=== PATIENT | male | born 1965 | race Caucasian/White ===

== ENCOUNTER 2017-05-05 15:35 | Inpatient (IN) | payer OTHER ==
[2017-05-05 15:45] VITALS: BMI 27.0
--- NOTE | 2017-05-05 15:59 | PDOC ---
Attending Attestation - Resident Resident Name: Yves Hall - ED Attending Attestation I have performed the following: I have examined & evaluated the patient, The case was reviewed & discussed with the resident, I agree w/resident's findings & plan, Exceptions are as noted - HPI HPI: 05/05/17 15:57 Abdominal pain with history of diverticulitis - Physicial Exam PE: 05/05/17 15:58 VSS/ Abd tender without peritoneal signs - Medical Decision Making 05/05/17 15:[address] Hall Assessment and plan
[2017-05-05] MEDS ORDERED: ONDANSETRON 4 MG/2 ML VIAL IVPB ONE (16:11)
[2017-05-05] MEDS ORDERED: morphine CARPU-JECT 4 MG/1 ML DISP.SYRIN IVPUSH ONE ×2 (16:11→17:21)
[2017-05-05] MEDS ORDERED: SODIUM CHLORIDE 1,000 ML IV STA ×2 (16:11→22:02)
[2017-05-05] MEDS ORDERED: morphine CARPU-JECT 2 MG/1 ML DISP.SYRIN ONE ×2 (16:25→17:56)
--- NOTE | 2017-05-05 16:26 | PDOC ---
History of Present Illness - General Chief Complaint: Pain Stated Complaint: ABD PAIN Time Seen by Provider: 05/05/17 15:56 History Source: Patient Exam Limitations: No Limitations - History of Present Illness Initial Comments: 05/05/17 16:19 Patient is a 51M with history of 3 episodes of diverticulitis (medically managed , last in February) here today complaining of lower left quadrant abdominal pain for the past several hours. He describes the pain as just like his prior episodes of diverticulitis, only worse. He endorses associated nausea, vomiting and diarrhea. He denies blood in vomit and stool. He denies fevers and chills. He denies changes in urination and testicular pain. GI Doc: Bhavin Lima Past History - Past Medical History Allergies/Adverse Reactions: Allergies Allergy/AdvReac Type Severity Reaction Status Date / Time No Known Allergies Allergy Verified 05/05/17 15:45 Home Medications: Ambulatory Orders NK [No Known Home Medication] 05/05/17 GI Disorders: Yes (DIVERTICULITIS) - Psycho/Social/Smoking Cessation Hx Anxiety: No Suicidal Ideation: No Smoking History: Current every day smoker Number of Cigarettes Smoked Daily: 4 Information on smoking cessation initiated: No Hx Alcohol Use: Yes (SOCIAL) Drug/Substance Use Hx: No Substance Use Type: None Review of Systems - Review of Systems Comments:: 05/05/17 16:26 GENERAL/CONSTITUTIONAL: No fever or chills. No weakness. HEAD, EYES, EARS, NOSE AND THROAT: No change in vision. No ear pain or discharge. No sore throat. CARDIOVASCULAR: No chest pain or shortness of breath RESPIRATORY: No cough, wheezing, or hemoptysis. GASTROINTESTINAL: Positive for nausea, vomiting and diarrhea GENITOURINARY: No dysuria, frequency, or change in urination. MUSCULOSKELETAL: No joint or muscle swelling or pain. Positive for neck and back pain, chronic, at baseline. SKIN: No rash NEUROLOGIC: No headache, vertigo, loss of consciousness, or change in strength/ sensation. ENDOCRINE: No increased thirst. No abnormal weight change HEMATOLOGIC/LYMPHATIC: No anemia, easy bleeding, or history of blood clots. ALLERGIC/IMMUNOLOGIC: No hives or skin allergy. *Physical Exam - Vital Signs Last Vital Signs Temp Pulse Resp BP Pulse Ox 98.8 F 89 20 107/58 98 05/05/17 15:42 05/05/17 15:42 05/05/17 15:42 05/05/17 15:42 05/05/17 15:42 - Physical Exam Comments: 05/05/17 16:27 GENERAL: Awake, alert, and fully oriented, in moderate distress HEAD: No signs of trauma, normocephalic, atraumatic EYES: PERRLA, EOMI, sclera anicteric, conjunctiva clear ENT: Auricles normal inspection, hearing grossly normal, nares patent, oropharynx clear without exudates. LUNGS: No distress, speaks full sentences, clear to auscultation bilaterally HEART: Regular rate and rhythm, normal S1 and S2, no murmurs, rubs or gallops, peripheral pulses normal and equal bilaterally. ABDOMEN: Soft, Tender to palpation in LLQ, normoactive bowel sounds. No guarding, no rebound. No masses : 2 testicles present, nontender, no swelling, normal cremaster reflex EXTREMITIES: Normal inspection, Normal range of motion, no edema. No clubbing or cyanosis. NEUROLOGICAL: Cranial nerves II through XII grossly intact. Normal speech, normal gait, no focal sensorimotor deficits SKIN: Warm, Dry, normal turgor, no rashes or lesions noted. ED Treatment Course - LABORATORY CBC & Chemistry Diagram: 05/05/17 16:15 05/05/17 16:15 - RADIOLOGY Radiology Studies Ordered: Category Date Time Status ABDOMEN & PELVIS CT WITH CONTR [CT] Stat CT Scan 05/05/17 16:13 Ordered Medical Decision Making - Medical Decision Making 05/05/17 16:30 51M with history of diverticulitis (medically managed, last flare in February) here today complaining of LLQ abdominal pain. Vital signs stable and normal. Non- peritoneal exam. Differential diagnosis includes, but is not limited to: diverticulitis, nephrolithiasis, and enteritis. Will evaluate with abdominal work up and CT scan with oral and iv contrast. Given 1L NS, zofran and morphine. 05/05/17 18:54 WBC of 14. Other labs normal. Patient's pain has been difficult to control. Pain control changed to dilaudid. 05/05/17 19:[address] Murrieta. Pending CT Abdomen/Pelvis. *DC/Admit/Observation/Transfer Diagnosis at time of Disposition: Abdominal pain Qualifiers: Abdominal location: left lower quadrant Qualified Code(s): R10.32 - Left lower quadrant pain - Attestations Physician Attestion: 05/05/17 19:17 I, Dr. Yves Hall, attest that this document has been prepared under my direction and personally reviewed by me in its entirety. I further attest, that it accurately reflects all work, treatment, procedures and medical decision -making performed by me.
[2017-05-05 16:35] LABS: BASOPHIL 0.3 % (0-2.0); EOSINOPHIL 0.3 % (0-4.5); MCH 29.3 pg (25.7-33.7); MCHC 33.2 g/dl (32.0-35.9); MEAN CELL VOLUME 88.4 fl (80-96); MEAN PLT VOLUME 7.5 fl (7.5-11.1); NEUTROPHILS 84.8 % (42.8-82.8); PLATELET COUNT 218 K/MM3 (134-434); RDW 13.7 % (11.9-15.9); WHITE BLOOD COUNT 14.2 K/mm3 (4.0-10.0)
[2017-05-05] MEDS ORDERED: KETOROLAC TROMETHAMINE 30 MG/1 ML VIAL IVPUSH ONE (16:51)
[2017-05-05 17:01] LABS: ALK PHOS 97 U/L (45-117); ANION GAP 6 (8-16); BILIRUBIN,TOTAL 0.6 mg/dL (0.2-1.0); CALCIUM 9.2 mg/dL (8.5-10.1); CO2 27 mmol/L (21-32); CREATININE 0.8 mg/dL (0.7-1.3); GLUCOSE,RANDOM 94 mg/dL (74-106); SGOT/AST 15 U/L (15-37); SGPT/ALT 26 U/L (12-78); TOT PROT 6.9 g/dl (6.4-8.2)
[2017-05-05 17:18] LABS: URINE APPEARANCE CLEAR; URINE BILIRUBIN NEGATIVE (NEGATIVE); URINE BLOOD 2+ (NEGATIVE); URINE COLOR LTYELLOW; URINE GLUCOSE (UA) NEGATIVE (NEGATIVE); URINE KETONE NEGATIVE (NEGATIVE); URINE LEUK ESTERASE NEGATIVE (NEGATIVE); URINE NITRITE NEGATIVE (NEGATIVE); URINE PROTEIN 1+ (NEGATIVE); URINE UROBILINOGEN NEGATIVE mg/dL (0.2-1.0)
[2017-05-05 17:20] LABS: URINE HYALINE CAST 3 /lpf; URINE MUCUS RARE; URINE RBC 2 /hpf (0-3); URINE WBC <1 /hpf (3-5)
[2017-05-05] MEDS ORDERED: HYDROmorphone HCL CARPU-JECT 1 MG/1 ML DISP.SYRIN IVPUSH ONE ×2 (18:25→20:38)
[2017-05-05] MEDS ORDERED: HYDROmorphone HCL CARPU-JECT 1 MG/1 ML DISP.SYRIN ONE ×2 (18:33→20:41)
--- NOTE | 2017-05-05 20:26 | PDOC ---
*Physical Exam - Vital Signs Last Vital Signs Temp Pulse Resp BP Pulse Ox 98.8 F 75 20 113/54 94 L 05/05/17 15:42 05/05/17 20:22 05/05/17 20:22 05/05/17 20:22 05/05/17 20:22 - Physical Exam Gastrointestinal/Abdominal: positive: Tender (exquisitly tender in LLQ and periumbilical only). negative: Distended, Guarding, Rebound ED Treatment Course - LABORATORY CBC & Chemistry Diagram: 05/05/17 16:15 05/05/17 16:15 - ADDITIONAL ORDERS Additional order review: Laboratory Results 05/05/17 05/05/17 17:10 16:15 Sodium 137 Potassium 4.3 Chloride 104 Carbon Dioxide 27 Anion Gap 6 L BUN 17 Creatinine 0.8 Creat Clearance w eGFR > 60 Random Glucose 94 Calcium 9.2 Total Bilirubin 0.6 AST 15 ALT 26 Alkaline Phosphatase 97 Total Protein 6.9 Albumin 4.0 Lipase 81 Urine Color Ltyellow Urine Appearance Clear Urine pH 5.0 Urine Protein 1+ H Urine Glucose (UA) Negative Urine Ketones Negative Urine Blood 2+ H Urine Nitrite Negative Urine Bilirubin Negative Urine Urobilinogen Negative Ur Leukocyte Esterase Negative Urine RBC 2 Urine WBC <1 Hyaline Casts 3 Urine Mucus Rare 05/05/17 16:15 RBC 4.75 MCV 88.4 MCHC 33.2 RDW 13.7 MPV 7.5 Neutrophils % 84.8 H Lymphocytes % 9.5 Monocytes % 5.1 Eosinophils % 0.3 Basophils % 0.3 - RADIOLOGY Radiograph Interpretation: 05/05/17 21:42 EXAM: CT Abdomen \T\ Pelvis w IMAGES: 550 EXAM DATE AND TIME: 2017-05-05 19:07:40 REASON FOR EXAM: 52 year-old man with diverticulitis. COMPARISON: None. TECHNIQUE: CT Abdomen \T\ Pelvis with I.V. and oral contrast: Post contrast axial images were obtained following the administration of i.v. iodinated contrast. Coronal and sagittal reformatted images were also generated. 100 cc of Omnipaque. FINDINGS: There is marked circumferential wall thickening in the mucosal edema involving the sigmoid colon and upper rectum, with extensive infiltration of the surrounding adipose tissues , associated with diverticulitis, a contained perforation and diverticular abscess. Noninfected diverticula are also seen more proximally in the sigmoid colon. TECHNIQUE: CT ABDOMEN AND PELVIS Inflammatory changes associated with diverticulitis and diverticular abscess have produced some thickening in the superior posterior wall of the urinary bladder, suggesting secondary urinary bladder cystitis. The ureters are normal in diameter. There is no evidence of pyelonephritis, hydronephrosis or nephrolithiasis. Prostate gland is normal. Remaining segments of the colon and small bowel appear normal. The appendix is normal. There is no free air. The lung bases, liver, portal vein, common bile duct, gallbladder, pancreatic tissues, spleen, adrenal glands, aorta and iliac arteries, and osseous structures appear unremarkable. No evidence of abdominal or pelvic adenopathy. IMPRESSION: Sigmoid colon diverticulitis with a contained perforation and diverticular abscess. These inflammatory changes have secondarily infected the dome posterior wall of the urinary bladder, which exhibits marked wall thickening, suggesting urinary bladder cystitis. The study is otherwise unremarkable. - Medications Given in the ED: ED Medications Discontinued Medications Generic Name Dose Route Start Last Admin Trade Name Freq PRN Reason Stop Dose Admin Hydromorphone HCl 1 mg 05/05/17 18:25 05/05/17 18:40 Dilaudid Injection - IVPUSH 05/05/17 18:26 1 mg ONCE ONE Administration Sodium Chloride 1,000 mls @ 1,000 mls/hr 05/05/17 16:11 05/05/17 16:33 Normal Saline - IV 05/05/17 17:10 1,000 mls/hr ASDIR STA Administration Ketorolac Tromethamine 30 mg 05/05/17 16:51 05/05/17 17:55 Toradol Injection - IVPUSH 05/05/17 16:52 Not Given ONCE ONE Morphine Sulfate 4 mg 05/05/17 16:11 05/05/17 16:32 Morphine Injection - IVPUSH 05/05/17 16:12 4 mg ONCE ONE Administration Morphine Sulfate 4 mg 05/05/17 17:21 05/05/17 18:08 Morphine Injection - IVPUSH 05/05/17 17:22 4 mg ONCE ONE Administration Ondansetron HCl 4 mg 05/05/17 16:11 05/05/17 16:30 Zofran Injection IVPB 05/05/17 16:12 4 mg ONCE ONE Administration Medical Decision Making - Medical Decision Making 05/05/17 20:24 Patient is a 51 yo male signed out to me by the day team (Dr. Quezada) Hx diverticulitis CC LLQ pain WBC 14, no UTI CT in progress - Check CT - Pain management 05/05/17 20:26 05/05/17 20:36 Patient states his pain has not been managed since he got here, 23/06 BP 113/54 Dilaudid 1 mg 05/05/17 20:51 Spoke in depth with patient and . They are very displeased with his care so far, especially pain management. Complaints appear primarily related to lack of information provided to him about care. I explained where we are in the process, performed abdominal examinaltion, informed him about additional Dilaudid, informed him I would try to accelerate CT read and would actively access and follow pain management. Patient expressed his comfort with the plan. 05/05/17 21:26 Spoke in depth with patient and . His pain is less and deemed acceptable at this time. Discussed possible outcomes. Patient feels reassured with information at this time Pt endorsed 4x hx of diverticulitis, GI Bhavin Lima. Previous pain controlled with tramadol 05/05/17 21:42 Imaging IMPRESSION: Sigmoid colon diverticulitis with a contained perforation and diverticular abscess. These inflammatory changes have secondarily infected the dome posterior wall of the urinary bladder, which exhibits marked wall thickening, suggesting urinary bladder cystitis. The study is otherwise unremarkable. 05/05/17 22:[address] Roel Burton. - Have Pt admitted - NPO - Zosyn - Fluids (125-150 NS) is not heart conditions - Consult - He will see patient in the morning 05/05/17 22:08 Discussed patient with hospitalist (Dr. Fung) who agreed with [facility] 05/05/17 22:[address] Vigil (covering for Dr. Bhavin Lima - GI) giving a heads up about admission of his patient. *DC/Admit/Observation/Transfer Diagnosis at time of Disposition: Abdominal pain Qualifiers: Abdominal location: left lower quadrant Qualified Code(s): R10.32 - Left lower quadrant pain Diverticulitis of both large and small intestine with abscess Qualifiers: Diverticulitis bleeding: without bleeding Qualified Code(s): K57.40 - Diverticulitis of both small and large intestine with perforation and abscess without bleeding - Discharge Dispostion Admit: Yes - Attestations Physician Attestion: 05/05/17 22:13 I, Dr. Salazar Núñez, attest that this document has been prepared under my direction and personally reviewed by me in its entirety. I further attest, that it accurately reflects all work, treatment, procedures and medical decision -making performed by me.
[2017-05-05] MEDS ORDERED: PIPERACILLIN/TAZOB 3.375 GM 3.375 GM in DEXTROSE 5%-WATER - 50 ML IVPB ONE (21:40)
[2017-05-05] MEDS ORDERED: HYDROmorphone HCL CARPU-JECT 2 MG/1 ML DISP.SYRIN ONE (23:12)
[2017-05-05] MEDS ORDERED: ONDANSETRON 4 MG/2 ML VIAL IVPB PRN (23:33)
[2017-05-05] MEDS: HYDROmorphone HCL CARPU-JECT 1 MG/1 ML DISP.SYRIN IVPUSH PRN (23:43)
--- NOTE | 2017-05-05 23:50 | HP ---
CHIEF COMPLAINT: LLQ abd pain PCP: Lavonne Guerra; GI: Dr. Bhavin Lima HISTORY OF PRESENT ILLNESS: This is a 51 year old male with a past medical history of diverticulitis (4 episodes in 2 years) who presented to the ED for LLQ pain associated with N/V/D since this afternoon. He denies blood in his vomitus or stool. Has felt hot and clammy off and on today. ER course was notable for: (1) CT abd/pel c/w diverticular abscess w/ contained perforation (2) WBC 14.2 Recent Travel: [place] PAST MEDICAL HISTORY: diverticulitis PAST SURGICAL HISTORY: Left rotator cuff and bicep tear repair March 2017 Right knee ACL, LCL, MCL repair Social History: Smoking: Quit 2016, previous 1 ppd Alcohol: social, couple of beers Drugs: marijuana Family History: mother alive, CVA age 60 father age 59, [place] sister without medical problems 2 children, alive and well Allergies bee venom protein (honey bee) Allergy (Verified 05/05/17 20:28) HOME MEDICATIONS: 3 Medication Instructions Recorded NK [No Known Home Medication] 05/05/17 REVIEW OF SYSTEMS CONSTITUTIONAL: Present: diaphoresis Absent: fever, chills, generalized weakness, malaise, loss of appetite, weight change HEENT: Absent: rhinorrhea, nasal congestion, throat pain, throat swelling, difficulty swallowing, mouth swelling, ear pain, eye pain, visual changes CARDIOVASCULAR: Absent: chest pain, syncope, palpitations, irregular heart rate, lightheadedness , peripheral edema RESPIRATORY: Absent: cough, shortness of breath, dyspnea with exertion, orthopnea, wheezing, stridor, hemoptysis GASTROINTESTINAL: Present: abdominal pain, nausea, vomiting, diarrhea Absent: abdominal distension, constipation, melena, hematochezia GENITOURINARY: Absent: dysuria, frequency, urgency, hesitancy, hematuria, flank pain, genital pain MUSCULOSKELETAL: Absent: myalgia, arthralgia, joint swelling, back pain, neck pain SKIN: Absent: rash, itching, pallor HEMATOLOGIC/IMMUNOLOGIC: Absent: easy bleeding, easy bruising, lymphadenopathy, frequent infections ENDOCRINE: Absent: unexplained weight gain, unexplained weight loss, heat intolerance, cold intolerance NEUROLOGIC: Absent: headache, focal weakness or paresthesias, dizziness, unsteady gait, seizure, mental status changes, bladder or bowel incontinence PSYCHIATRIC: Absent: anxiety, depression, suicidal or homicidal ideation, hallucinations. PHYSICAL EXAMINATION Vital Signs - 24 hr 3 05/05/17 05/05/17 05/05/17 15:42 20:21 20:22 Temperature 98.8 F Pulse Rate 89 Pulse Rate [ 75 Radial] Respiratory 20 20 Rate Blood Pressure 107/58 Blood Pressure 113/54 [Right Arm] O2 Sat by Pulse 98 94 L 94 L Oximetry (%) GENERAL: Awake, alert, and fully oriented, in no acute distress. HEAD: Normal with no signs of trauma. EYES: Pupils equal, round and reactive to light, extraocular movements intact, sclera anicteric, conjunctiva clear. No lid lag. EARS, NOSE, THROAT: Ears normal, nares patent, oropharynx clear without exudates. Moist mucous membranes. NECK: Normal range of motion, supple without lymphadenopathy, JVD, or masses. LUNGS: Breath sounds equal, clear to auscultation bilaterally. No wheezes, and no crackles. No accessory muscle use. HEART: Regular rate and rhythm, normal S1 and S2 without murmur, rub or gallop. ABDOMEN: Soft, not distended, hypoactive bowel sounds, no guarding, no rebound, no masses. No hepatomegaly or splenomegaly. Pain on LLQ palpation MUSCULOSKELETAL: Normal range of motion at all joints. No bony deformities or tenderness. No CVA tenderness. UPPER EXTREMITIES: 2+ pulses, warm, well-perfused. No cyanosis. No clubbing. No peripheral edema. left arm in sling LOWER EXTREMITIES: 2+ pulses, warm, well-perfused. No calf tenderness. No peripheral edema. NEUROLOGICAL: Cranial nerves II-XII intact. Normal speech. Normal gait. PSYCHIATRIC: Cooperative. Good eye contact. Appropriate mood and affect. SKIN: Warm, dry, normal turgor, no rashes or lesions noted, normal capillary refill. Laboratory Results - last 24 hr 3 05/05/17 05/05/17 05/05/17 16:15 16:15 17:10 WBC 14.2 H RBC 4.75 Hgb 13.9 Hct 42.0 MCV 88.4 MCH 29.3 MCHC 33.2 RDW 13.7 Plt Count 218 MPV 7.5 Neutrophils % 84.8 H Lymphocytes % 9.5 Monocytes % 5.1 Eosinophils % 0.3 Basophils % 0.3 Sodium 137 Potassium 4.3 Chloride 104 Carbon Dioxide 27 Anion Gap 6 L BUN 17 Creatinine 0.8 Creat Clearance w eGFR > 60 Random Glucose 94 Calcium 9.2 Total Bilirubin 0.6 AST 15 ALT 26 Alkaline Phosphatase 97 Total Protein 6.9 Albumin 4.0 Lipase 81 Urine Color Ltyellow Urine Appearance Clear Urine pH 5.0 Ur Specific [place] >= 1.030 H Urine Protein 1+ H Urine Glucose (UA) Negative Urine Ketones Negative Urine Blood 2+ H Urine Nitrite Negative Urine Bilirubin Negative Urine Urobilinogen Negative Ur Leukocyte Esterase Negative Urine RBC 2 Urine WBC <1 Hyaline Casts 3 Urine Mucus Rare Radiology Results 05/05/17 21:42 EXAM: CT Abdomen \T\ Pelvis w IMAGES: 550 EXAM DATE AND TIME: 2017-05-05 19:07:40 REASON FOR EXAM: 52 year-old man with diverticulitis. COMPARISON: None. TECHNIQUE: CT Abdomen \T\ Pelvis with I.V. and oral contrast: Post contrast axial images were obtained following the administration of i.v. iodinated contrast. Coronal and sagittal reformatted images were also generated. 100 cc of Omnipaque. FINDINGS: There is marked circumferential wall thickening in the mucosal edema involving the sigmoid colon and upper rectum, with extensive infiltration of the surrounding adipose tissues , associated with diverticulitis, a contained perforation and diverticular abscess. Noninfected diverticula are also seen more proximally in the sigmoid colon. TECHNIQUE: CT ABDOMEN AND PELVIS Inflammatory changes associated with diverticulitis and diverticular abscess have produced some thickening in the superior posterior wall of the urinary bladder, suggesting secondary urinary bladder cystitis. The ureters are normal in diameter. There is no evidence of pyelonephritis, hydronephrosis or nephrolithiasis. Prostate gland is normal. Remaining segments of the colon and small bowel appear normal. The appendix is normal. There is no free air. The lung bases, liver, portal vein, common bile duct, gallbladder, pancreatic tissues, spleen, adrenal glands, aorta and iliac arteries, and osseous structures appear unremarkable. No evidence of abdominal or pelvic adenopathy. IMPRESSION: Sigmoid colon diverticulitis with a contained perforation and diverticular abscess. These inflammatory changes have secondarily infected the dome posterior wall of the urinary bladder, which exhibits marked wall thickening, suggesting urinary bladder cystitis. The study is otherwise unremarkable. ASSESSMENT/PLAN: 51yM with PMH diverticulitis presented to ED with LLQ pain associated with N/V/ D. He is being admitted for diverticulitis with abscess and contained perforation. Diverticulitis with abscess and contained perforation - zosyn 3.375 q6h, ID consult ordered for approval - surgery consulted by ED. Dr. Burton to attend in am - NS @ 125cc/hr - NPO - dilaudid 1mg q4h for pain, assess efficacy and increase as needed - zofran PRN nausea DVT PPX - hold heparin preop, reeval postop FEN - NS @ 125cc/hr - BMP in am - NPO preop for anticipated surgery in am Dispo: pt currently requires inpatient management of his emergent condition and anticipated LOS is greater than 2 midnights. Visit type - Emergency Visit Emergency Visit: Yes ED Registration Date: 05/05/17 Care time: The patient presented to the Emergency Department on the above date and was hospitalized for further evaluation of their emergent condition. - New Patient This patient is new to me today: Yes Date on this admission: 05/05/17 - Critical Care Critical Care patient: No
[2017-05-06] MEDS: SODIUM CHLORIDE 1,000 ML IV SCH ×3 (00:43→17:13)
[2017-05-06] MEDS ORDERED: HYDROmorphone HCL CARPU-JECT 1 MG/1 ML DISP.SYRIN IVPB ONE ×2 (01:47→09:13)
[2017-05-06] MEDS ORDERED: PIPERACILLIN/TAZOB 3.375 GM/50 ML PRE-DOCKED IVPB ONE (06:00)
[2017-05-06] MEDS ORDERED: PIPERACILLIN/TAZOBACTAM 3.375 GM VIAL IVPB ONE ×3 (06:23→17:08)
[2017-05-06] MEDS ORDERED: DEXTROSE 5%-WATER - 50 ML IVPB ONE ×2 (06:23→17:08)
[2017-05-06] MEDS ORDERED: PIPERACILLIN/TAZOB 3.375 GM 3.375 GM in DEXTROSE 5%-WATER - 50 ML IVPB ONE ×2 (06:30→08:15)
[2017-05-06] MEDS: HYDROmorphone HCL CARPU-JECT 1 MG/1 ML DISP.SYRIN IVPUSH PRN ×4 (06:34→21:49)
[2017-05-06 07:35] LABS: BASOPHIL 0.2 % (0-2.0); EOSINOPHIL 0.1 % (0-4.5); MCH 29.5 pg (25.7-33.7); MCHC 32.9 g/dl (32.0-35.9); MEAN CELL VOLUME 89.7 fl (80-96); NEUTROPHILS 84.8 % (42.8-82.8); PLATELET COUNT 185 K/MM3 (134-434); WHITE BLOOD COUNT 15.3 K/mm3 (4.0-10.0)
[2017-05-06] MEDS ORDERED: PIPERACILLIN/TAZOB 3.375 GM/50 ML PRE-DOCKED IV ONE (07:47)
[2017-05-06 07:56] LABS: ANION GAP 9 (8-16); CALCIUM 7.9 mg/dL (8.5-10.1); CO2 24 mmol/L (21-32); GLUCOSE,RANDOM 87 mg/dL (74-106); MAGNESIUM 1.6 mg/dL (1.8-2.4)
[2017-05-06 07:57] LABS: CREATININE 0.6 mg/dL (0.7-1.3); PHOSPHOROUS 2.4 mg/dL (2.5-4.9)
[2017-05-06] MEDS ORDERED: DEXTROSE 5%-WATER - 100 ML IVPB ONE (08:44)
[2017-05-06] MEDS ORDERED: DEXTROSE 5%-WATER 100 ML IVPB ONE (09:42)
[2017-05-06] MEDS ORDERED: PANTOPRAZOLE SODIUM 40 MG VIAL ONE (09:42)
[2017-05-06] MEDS ORDERED: SODIUM CHLORIDE 100 ML IVPB ONE (09:42)
[2017-05-06] MEDS: PANTOPRAZOLE SODIUM 40 MG in SODIUM CHLORIDE 100 ML IVPB SCH (09:50)
[2017-05-06] MEDS ORDERED: cefTRIAXone 2 GM/100 ML BAG (PRE-DOCKED) IVPB SCH (10:00)
[2017-05-06] MEDS ORDERED: CEFTRIAXONE 2 GM in DEXTROSE 5%-WATER 100 ML IVPB SCH (10:00)
--- NOTE | 2017-05-06 10:50 | CONSULT ---
Consult Consult Specialty:: Surgery Reason for Consultation:: Diverticulitis with abscess - History of Present Illness Chief Complaint: Abdominal pain History of Present Illness: 52 male presents to the ER for abdominal pain x 1-2 days Has had 3-4 episodes of diverticulitis in the past Treated with antibiotics Now with worse pain Denies fevers, chills Denies diarrhea CT shows left sided diverticulitis with contained perforation with abscess - History Source History Provided By: Patient, Medical Record Limitations to Obtaining History: No Limitations - Past Medical History Gastrointestinal: Yes: Diverticulitis - Past Surgical History Additional Surgical History: Left shoulder surgery - Alcohol/Substance Use Hx Alcohol Use: Yes (SOCIAL) - Smoking History Smoking history: Current every day smoker Aproximately how many cigarettes per day: 4 Home Medications - Allergies Allergies/Adverse Reactions: Allergies Allergy/AdvReac Type Severity Reaction Status Date / Time bee venom protein (honey bee) Allergy Verified 05/05/17 20:28 - Home Medications Home Medications: Ambulatory Orders NK [No Known Home Medication] 05/05/17 Family Disease History - Family Disease History Family History: Denies Review of Systems - Review of Systems Constitutional: denies: Chills, Fever Eyes: reports: No Symptoms HENT: reports: No Symptoms Neck: reports: No Symptoms Cardiovascular: denies: Chest Pain Respiratory: denies: Cough Gastrointestinal: reports: Abdominal Pain. denies: Diarrhea, Nausea, Vomiting Genitourinary: reports: No Symptoms Neurological: denies: Change in LOC Pain Intensity: 5 Physical Exam Vital Signs: Vital Signs Temperature 100.2 F H 05/06/17 08:15 Pulse Rate 80 05/06/17 08:15 Respiratory Rate 20 05/06/17 08:15 Blood Pressure 108/60 05/06/17 08:15 O2 Sat by Pulse Oximetry (%) 99 05/06/17 01:37 Constitutional: Yes: Calm HENT: Yes: WNL Neck: Yes: Supple Cardiovascular: Yes: Regular Rate and Rhythm Respiratory: Yes: Regular Gastrointestinal: Yes: Soft, Tenderness (+ LLQ, suprapubic). No: Distention, Tenderness, Rebound Extremities: Yes: WNL Neurological: Yes: Alert, Oriented Labs: CBC, BMP 05/06/17 06:30 05/06/17 06:30 Imaging - Results Cat Scan: Report Reviewed, Image Reviewed Problem List - Problems (1) Perforated diverticulum of large intestine Code(s): K57.20 - DVTRCLI OF LG INT W PERFORATION AND ABSCESS W/O BLEEDING (2) Intra-abdominal abscess Code(s): K65.1 - PERITONEAL ABSCESS Assessment/Plan 52 male with contained perforation from left sided diverticulitis with abscess NPO IV fluids Antibiotics Interventional radiology consulted for drainage If worsens explained the need for an exploratory laparotomy with colectomy and ostomy Colorectal surgery consulted
--- NOTE | 2017-05-06 11:29 | CONSULT ---
Consult Consult Specialty:: infectious diseases Reason for Consultation:: diverticulitis - History of Present Illness Chief Complaint: abd pain History of Present Illness: 51M with history of 5th episodes of diverticulitis (medically managed, last in February) again getting admitted with similar complaints of abd pain without fever nausea or vomiting patient has been treated medically so far for all his episodes currently patient has pain patient was given abx on admission work shows again diverticulitis - History Source History Provided By: Patient Limitations to Obtaining History: No Limitations - Past Medical History Gastrointestinal: Yes: Diverticulitis - Past Surgical History Additional Surgical History: Left shoulder surgery - Alcohol/Substance Use Hx Alcohol Use: Yes (SOCIAL) - Smoking History Smoking history: Current every day smoker Aproximately how many cigarettes per day: 4 Home Medications - Allergies Allergies/Adverse Reactions: Allergies Allergy/AdvReac Type Severity Reaction Status Date / Time bee venom protein (honey bee) Allergy Verified 05/05/17 20:28 - Home Medications Home Medications: Ambulatory Orders NK [No Known Home Medication] 05/05/17 Review of Systems - Review of Systems Constitutional: reports: No Symptoms Eyes: reports: No Symptoms HENT: reports: No Symptoms Neck: reports: No Symptoms Cardiovascular: reports: No Symptoms Respiratory: reports: No Symptoms Gastrointestinal: reports: Abdominal Pain Genitourinary: reports: No Symptoms Musculoskeletal: reports: No Symptoms Integumentary: reports: No Symptoms Neurological: reports: No Symptoms Endocrine: reports: No Symptoms Hematology/Lymphatic: reports: No Symptoms Psychiatric: reports: No Symptoms Physical Exam Vital Signs: Vital Signs Temperature 100.2 F H 05/06/17 08:15 Pulse Rate 80 05/06/17 08:15 Respiratory Rate 20 05/06/17 08:15 Blood Pressure 108/60 05/06/17 08:15 O2 Sat by Pulse Oximetry (%) 99 05/06/17 01:37 Constitutional: Yes: Well Nourished, Calm, Mild Distress Eyes: Yes: Conjunctiva Clear HENT: Yes: Atraumatic, Normocephalic Neck: Yes: Supple, Trachea Midline Cardiovascular: Yes: Regular Rate and Rhythm Respiratory: Yes: Regular, CTA Bilaterally Gastrointestinal: Yes: Hypoactive Bowel Sounds, Tenderness (llq) Musculoskeletal: Yes: WNL Extremities: Yes: Other (left shoulder surgery) Neurological: Yes: Alert, Oriented Psychiatric: Yes: Alert, Oriented Labs: CBC, BMP 05/06/17 06:30 05/06/17 06:30 Imaging - Results Cat Scan: Report Reviewed, Image Reviewed Assessment/Plan patient with repeated episode of diverticulitis diverticulitis abd pain leukocytosis plan npo as per surgery abx rest as per primary team
[2017-05-06] MEDS ORDERED: HYDROmorphone HCL CARPU-JECT 1 MG/1 ML DISP.SYRIN IVPUSH PRN (14:11)
--- NOTE | 2017-05-06 14:53 | PN ---
Physical Exam: SUBJECTIVE: Patient seen and examined. Verbalizes pain. Dilaudid not fully managing his pain, states he is still having severe discomfort. OBJECTIVE: Dilaudid increased to 2mg prn Vital Signs Period Temp Pulse Resp BP Sys/Hou Pulse Ox Last 24 Hr 98.3 F-100.3 F 79-91 18-20 108-142/60-81 99-99 GENERAL: Awake, alert, and fully oriented, in no acute distress. HEAD: Normal with no signs of trauma. EYES: Pupils equal, round and reactive to light, extraocular movements intact, sclera anicteric, conjunctiva clear. No lid lag. EARS, NOSE, THROAT: Ears normal, nares patent, oropharynx clear without exudates. Moist mucous membranes. NECK: Normal range of motion, supple without lymphadenopathy, JVD, or masses. LUNGS: Breath sounds equal, clear to auscultation bilaterally. No wheezes, and no crackles. No accessory muscle use. HEART: Regular rate and rhythm, normal S1 and S2 without murmur, rub or gallop. ABDOMEN: Soft, not distended, + abdominal pain, hypoactive bowel sounds, no guarding, no rebound, no masses. MUSCULOSKELETAL: Normal range of motion at all joints. No bony deformities or tenderness. No CVA tenderness. UPPER EXTREMITIES: left arm in sling s/p work injury, hands warm, normal ROM LOWER EXTREMITIES: 2+ pulses, warm, well-perfused. No calf tenderness. No peripheral edema. NEUROLOGICAL: Cranial nerves II-XII intact. Normal speech. Normal gait. PSYCHIATRIC: Cooperative. Good eye contact. Appropriate mood and affect. SKIN: Warm, dry, normal turgor, no rashes or lesions noted, normal capillary refill. Laboratory Results - last 24 hr 05/06/17 05/06/17 06:30 06:30 WBC 15.3 H RBC 4.24 Hgb 12.5 D Hct 38.0 MCV 89.7 MCH 29.5 MCHC 32.9 RDW 14.0 Plt Count 185 MPV 8.0 Neutrophils % 84.8 H Lymphocytes % 8.2 Monocytes % 6.7 Eosinophils % 0.1 Basophils % 0.2 Sodium 134 L Potassium 3.9 Chloride 101 Carbon Dioxide 24 Anion Gap 9 BUN 10 D Creatinine 0.6 L D Random Glucose 87 Calcium 7.9 L Phosphorus 2.4 L Magnesium 1.6 L Active Medications Generic Name Dose Route Start Last Admin Trade Name Freq PRN Reason Stop Dose Admin Hydromorphone HCl 2 mg 05/06/17 14:11 Dilaudid Injection - IVPUSH Q6H PRN PAIN Sodium Chloride 1,000 mls @ 125 mls/hr 05/05/17 22:45 05/06/17 06:34 Normal Saline - IV 125 mls/hr ASDIR ARIANA Administration Pantoprazole Sodium 40 mg/ 100 mls @ 200 mls/hr 05/06/17 10:00 05/06/17 09:50 Sodium Chloride IVPB 200 mls/hr DAILY ARIANA Administration Piperacillin Sod/Tazobactam 50 mls @ 100 mls/hr 05/06/17 18:00 Sod 3.375 gm/ Dextrose IVPB Q8H-IV ARIANA Protocol Ondansetron HCl 4 mg 05/05/17 23:33 Zofran Injection IVPB Q6H PRN NAUSEA ASSESSMENT/PLAN: Patient is a 52 year old male with a significant past medical history of diverticulitis (with 4 episodes in the last 2 years). He presented to the ER on 05/05/2017 with left lower quadrant pain. Abdominal pain associated with nausea vomiting and diarrhea. He denies blood in vomit or stool. He denies any chest pain, fever or chills. Imaging: Abdominal CT 05/05/2017: Findings consistent with diverticulosis and acute diverticulitis involving the mid and mid to distal sigmoid colon with suggestion of small collection/abscess and extraluminal air pockets measuring 2cm in diameter best visualized on axial image 120. Thickening of the posterio urinary bladder wall likely due to surrounding inflammation. GI: Diverticulitis with abscess and contained perforation A/P: WBC 14.2, febrile on admission, + LLQ abdominal pain Surgery consulted and saw patient, notes reviewed IR consulted by surgery for possible abscess drainage On Zosyn and given 1 dose of Ceftriaxone today ID following, notes reviewed Blood cultures pending, Dilaudid 2mg q6 for pain Zofran for nausea NS @125cc/hr NPO Monitor labs, vitals, pain F.E.N. Fluids: normal saline @125cc/hr Electrolytes: hypomagnesium repleted with 1 gram IV x 1, low phos, monitor Nutrition: NPO Prophylaxis: DVT: No a/c for potential surger/drainage by IR, SCDs., ambulation GI; Protonix iv daily Disposition: Full Code. Visit type - Emergency Visit Emergency Visit: Yes ED Registration Date: 05/05/17 Care time: The patient presented to the Emergency Department on the above date and was hospitalized for further evaluation of their emergent condition. - New Patient This patient is new to me today: Yes Date on this admission: 05/06/17 - Critical Care Critical Care patient: No - Discharge Referral Referred to [facility] Med P.C.: No
[2017-05-06] MEDS: PIPERACILLIN/TAZOB 3.375 GM 3.375 GM in DEXTROSE 5%-WATER - 50 ML IVPB SCH (17:13)
[2017-05-06] MEDS ORDERED: MAGNESIUM SULF 50% (8.12 MEQ/2 ML-1 GM VIAL) IVPB ONE (18:00)
--- NOTE | 2017-05-06 18:18 | CONSULT ---
Consult Consult Specialty:: Surgery Referred by:: Dr. Burton Reason for Consultation:: Perforated diverticulitis with contained abscess - History of Present Illness History of Present Illness: 52 y.o. male admitted for recurrent attacks of acute diverticulitis. CTA/P showed perforated diverticulitis with possible abscess. - History Source History Provided By: Patient Limitations to Obtaining History: Uncooperative - Past Medical History Gastrointestinal: Yes: Diverticulitis - Past Surgical History Additional Surgical History: Left shoulder surgery - Alcohol/Substance Use Hx Alcohol Use: Yes (SOCIAL) - Smoking History Smoking history: Current every day smoker Aproximately how many cigarettes per day: 4 - Social History Usual Living Arrangement: With Spouse Home Medications - Allergies Allergies/Adverse Reactions: Allergies Allergy/AdvReac Type Severity Reaction Status Date / Time bee venom protein (honey bee) Allergy Verified 05/05/17 20:28 - Home Medications Home Medications: Ambulatory Orders NK [No Known Home Medication] 05/05/17 Review of Systems - Review of Systems Gastrointestinal: reports: Abdominal Pain (lower quadrants) Physical Exam Vital Signs: Vital Signs Temperature 99.7 F H 05/06/17 16:59 Pulse Rate 80 05/06/17 16:59 Respiratory Rate 20 05/06/17 16:59 Blood Pressure 119/61 05/06/17 16:59 O2 Sat by Pulse Oximetry (%) 98 05/06/17 09:00 Constitutional: Yes: Well Nourished Eyes: Yes: Conjunctiva Clear HENT: Yes: Normocephalic Neck: Yes: Supple Cardiovascular: Yes: Regular Rate and Rhythm Respiratory: Yes: CTA Bilaterally Gastrointestinal: Yes: Tenderness (at LLQ and suprpubic area, no rebound tenderness) ...Rectal Exam: Yes: Deferred Extremities: Yes: WNL Integumentary: Yes: WNL Neurological: Yes: Alert, Oriented Labs: CBC, BMP 05/06/17 06:30 05/06/17 06:30 Imaging - Results Cat Scan: Report Reviewed (perforated diverticulitis with 2 cm abscess), Image Reviewed Problem List - Problems (1) Diverticulitis of both large and small intestine with abscess Assessment/Plan: agree with IR consult for possible percutaneous drainage of abscess continue IV antibiotics bowel rest and IV hydration DVT & GI prophylaxis Code(s): K57.40 - DVTRCLI OF BOTH SMALL AND LG INT W PERF AND ABSCS W/O BLEED Qualifiers: Diverticulitis bleeding: without bleeding Qualified Code(s): K57.40 - Diverticulitis of both small and large intestine with perforation and abscess without bleeding
[2017-05-07] MEDS ORDERED: PIPERACILLIN/TAZOBACTAM 3.375 GM VIAL IVPB ONE ×3 (01:46→17:47)
[2017-05-07] MEDS ORDERED: DEXTROSE 5%-WATER - 50 ML IVPB ONE ×3 (01:47→17:48)
[2017-05-07] MEDS: PIPERACILLIN/TAZOB 3.375 GM 3.375 GM in DEXTROSE 5%-WATER - 50 ML IVPB SCH ×3 (01:59→18:04)
[2017-05-07] MEDS: HYDROmorphone HCL CARPU-JECT 1 MG/1 ML DISP.SYRIN IVPUSH PRN ×5 (01:59→22:35)
[2017-05-07] MEDS: SODIUM CHLORIDE 1,000 ML IV SCH ×3 (02:05→21:13)
[2017-05-07 07:27] LABS: BASOPHIL 0.4 % (0-2.0); EOSINOPHIL 0.4 % (0-4.5); MCH 29.3 pg (25.7-33.7); MCHC 32.9 g/dl (32.0-35.9); MEAN CELL VOLUME 89.2 fl (80-96); MEAN PLT VOLUME 7.6 fl (7.5-11.1); PLATELET COUNT 168 K/MM3 (134-434); RDW 13.8 % (11.9-15.9); WHITE BLOOD COUNT 13.1 K/mm3 (4.0-10.0)
[2017-05-07 07:53] LABS: ANION GAP 10 (8-16); BILIRUBIN,TOTAL 0.9 mg/dL (0.2-1.0); CALCIUM 8.1 mg/dL (8.5-10.1); CO2 23 mmol/L (21-32); CREATININE 0.7 mg/dL (0.7-1.3); GLUCOSE,RANDOM 70 mg/dL (74-106); MAGNESIUM 1.9 mg/dL (1.8-2.4); PHOSPHOROUS 2.4 mg/dL (2.5-4.9); SGOT/AST 11 U/L (15-37); SGPT/ALT 17 U/L (12-78); TOT PROT 5.8 g/dl (6.4-8.2)
[2017-05-07 07:54] LABS: ALK PHOS 81 U/L (45-117)
[2017-05-07] MEDS ORDERED: SODIUM CHLORIDE 100 ML IVPB ONE (09:47)
[2017-05-07] MEDS ORDERED: PANTOPRAZOLE SODIUM 40 MG VIAL ONE (09:47)
--- NOTE | 2017-05-07 09:47 | PN ---
Progress Note, Physician History of Present Illness: pain better surgery note noted - Current Medication List Current Medications: Active Medications Hydromorphone HCl (Dilaudid Injection -) 2 mg IVPUSH Q4H PRN PRN Reason: PAIN Last Admin: 05/07/17 01:59 Dose: 2 mg Sodium Chloride (Normal Saline -) 1,000 mls @ 125 mls/hr IV ASDIR ARIANA Last Admin: 05/07/17 02:05 Dose: 125 mls/hr Pantoprazole Sodium 40 mg/ (Sodium Chloride) 100 mls @ 200 mls/hr IVPB DAILY ARIANA Last Admin: 05/06/17 09:50 Dose: 200 mls/hr Piperacillin Sod/Tazobactam (Sod 3.375 gm/ Dextrose) 50 mls @ 100 mls/hr IVPB Q8H-IV ARIANA PRN Reason: Protocol Last Admin: 05/07/17 01:59 Dose: 100 mls/hr Ondansetron HCl (Zofran Injection) 4 mg IVPB Q6H PRN PRN Reason: NAUSEA - Objective Vital Signs: Vital Signs Temperature 98.8 F 05/07/17 06:19 Pulse Rate 68 05/07/17 06:19 Respiratory Rate 20 05/07/17 06:19 Blood Pressure 130/66 05/07/17 06:19 O2 Sat by Pulse Oximetry (%) 98 05/06/17 20:44 Constitutional: Yes: Calm, Mild Distress Cardiovascular: Yes: Regular Rate and Rhythm Respiratory: Yes: Regular, CTA Bilaterally Gastrointestinal: Yes: Tenderness, Other Musculoskeletal: Yes: WNL Extremities: Yes: WNL Neurological: Yes: Alert, Oriented Psychiatric: Yes: Alert, Oriented Labs: CBC, BMP 05/07/17 06:00 05/07/17 06:00 Assessment/Plan patient with repeated episode of diverticulitis Problem List - Problems (1) Diverticulitis of both large and small intestine with abscess Code(s): K57.40 - DVTRCLI OF BOTH SMALL AND LG INT W PERF AND ABSCS W/O BLEED Qualifiers: Diverticulitis bleeding: without bleeding Qualified Code(s): K57.40 - Diverticulitis of both small and large intestine with perforation and abscess without abd pain leukocytosis plan npo as per surgery abx rest as per primary team plan for drainage
[2017-05-07] MEDS: PANTOPRAZOLE SODIUM 40 MG in SODIUM CHLORIDE 100 ML IVPB SCH (09:59)
--- NOTE | 2017-05-07 14:11 | PN ---
Physical Exam: SUBJECTIVE: Patient seen and examined at the bedside. Continues to have LLQ abdominal pain but improving with the uptitration of Dilaudid. Denies left arm pain. Agitated/frustrated earlier today. States his pain is being managed, he is frustrated about final plans on whether or not his abscess will be drained. OBJECTIVE: Vital Signs Period Temp Pulse Resp BP Sys/Hou Pulse Ox Last 24 Hr 98.1 F-99.7 F 68-85 18-20 112-135/60-82 98-98 ENERAL: Awake, alert, and fully oriented, in no acute distress. HEAD: Normal with no signs of trauma. EYES: Pupils equal, round and reactive to light, extraocular movements intact, sclera anicteric, conjunctiva clear. No lid lag. EARS, NOSE, THROAT: Ears normal, nares patent, oropharynx clear without exudates. Moist mucous membranes. NECK: Normal range of motion, supple without lymphadenopathy, JVD, or masses. LUNGS: Breath sounds equal, clear to auscultation bilaterally. No wheezes, and no crackles. No accessory muscle use. HEART: Regular rate and rhythm, normal S1 and S2 without murmur, rub or gallop. ABDOMEN: Soft, not distended, + abdominal pain, hypoactive bowel sounds, no guarding, no rebound, no masses. MUSCULOSKELETAL: Normal range of motion at all joints. No bony deformities or tenderness. No CVA tenderness. UPPER EXTREMITIES: left arm in sling s/p work injury/harpreet, hands warm, normal ROM - denies pain to left arm LOWER EXTREMITIES: 2+ pulses, warm, well-perfused. No calf tenderness. No peripheral edema. NEUROLOGICAL: Cranial nerves II-XII intact. Normal speech. Normal gait. PSYCHIATRIC: Agitated/frustrated earlier today, now cooperative SKIN: Warm, dry, normal turgor, no rashes or lesions noted, normal capillary refill. Laboratory Results - last 24 hr 05/07/17 05/07/17 06:00 06:00 WBC 13.1 H RBC 3.97 L Hgb 11.6 L Hct 35.4 MCV 89.2 MCH 29.3 MCHC 32.9 RDW 13.8 Plt Count 168 MPV 7.6 Neutrophils % 77.0 Lymphocytes % 15.0 D Monocytes % 7.2 Eosinophils % 0.4 D Basophils % 0.4 Sodium 134 L Potassium 3.8 Chloride 101 Carbon Dioxide 23 Anion Gap 10 BUN 9 Creatinine 0.7 Creat Clearance w eGFR > 60 Random Glucose 70 L Calcium 8.1 L Phosphorus 2.4 L Magnesium 1.9 Total Bilirubin 0.9 D AST 11 L D ALT 17 D Alkaline Phosphatase 81 Total Protein 5.8 L Albumin 3.0 L D Active Medications Generic Name Dose Route Start Last Admin Trade Name Freq PRN Reason Stop Dose Admin Hydromorphone HCl 2 mg 05/06/17 17:58 05/07/17 10:31 Dilaudid Injection - IVPUSH 2 mg Q4H PRN Administration PAIN Sodium Chloride 1,000 mls @ 125 mls/hr 05/05/17 22:45 05/07/17 10:00 Normal Saline - IV 125 mls/hr ASDIR ARIANA Administration Pantoprazole Sodium 40 mg/ 100 mls @ 200 mls/hr 05/06/17 10:00 05/07/17 09:59 Sodium Chloride IVPB 200 mls/hr DAILY ARIANA Administration Piperacillin Sod/Tazobactam 50 mls @ 100 mls/hr 05/06/17 18:00 05/07/17 09:59 Sod 3.375 gm/ Dextrose IVPB 100 mls/hr Q8H-IV ARIANA Administration Protocol Lorazepam 0.5 mg 05/07/17 13:40 Ativan Injection - IVPB Q6H PRN ANXIETY Ondansetron HCl 4 mg 05/05/17 23:33 Zofran Injection IVPB Q6H PRN NAUSEA ASSESSMENT/PLAN: Patient is a 52 year old male with a significant past medical history of diverticulitis (with 4 episodes in the last 2 years). He presented to the ER on 05/05/2017 with left lower quadrant pain. Abdominal pain associated with nausea vomiting and diarrhea. He denies blood in vomit or stool. He denies any chest pain, fever or chills. Imaging: Abdominal CT 05/05/2017: Findings consistent with diverticulosis and acute diverticulitis involving the mid and mid to distal sigmoid colon with suggestion of small collection/abscess and extraluminal air pockets measuring 2cm in diameter best visualized on axial image. Thickening of the posterior urinary bladder wall likely due to surrounding inflammation. GI: Diverticulitis with 2cm abscess and contained perforation A/P: WBC 13.1, afebrile, + LLQ abdominal pain Surgery consulted and saw patient, IR to evaluate whether or not abscess can be drained On Zosyn (day #2), Given one dose of Ceftriaxone on 05/05/17 ID following, notes reviewed Blood cultures ngtd Dilaudid 2mg q6 for pain Zofran for nausea, protonix for GI prophylaxis NS @125cc/hr NPO, bowel rest Monitor labs, vitals, pain F.E.N. Fluids: normal saline @125cc/hr Electrolytes: hypomagnesium now resolved Nutrition: NPO Prophylaxis: DVT: No a/c for potential surgery/drainage by IR, SCDs., ambulation If no drainage/surgical interventions, consider anticoagulation with Lovenox GI; Protonix iv daily Disposition: Full Code. Visit type - Emergency Visit Emergency Visit: Yes ED Registration Date: 05/05/17 Care time: The patient presented to the Emergency Department on the above date and was hospitalized for further evaluation of their emergent condition. - New Patient This patient is new to me today: No - Critical Care Critical Care patient: No - Discharge Referral Referred to [facility] Med P.C.: No
--- NOTE | 2017-05-07 15:44 | PN ---
Progress Note (short form) - Note Progress Note: No new events Pain still present but controlled with medication NPO Ambulating Discussed CT with IR- no drainage at this time Vital Signs Period Temp Pulse Resp BP Sys/Hou Pulse Ox Last 24 Hr 98.4 F-99.7 F 68-85 16-20 119-135/60-66 98-98 Abd soft, + tender CBC, BMP 05/07/17 06:00 05/07/17 06:00 NPO IV fluids Antibiotics Bowel rest Problem List - Problems (1) Perforated diverticulum of large intestine Code(s): K57.20 - DVTRCLI OF LG INT W PERFORATION AND ABSCESS W/O BLEEDING (2) Intra-abdominal abscess Code(s): K65.1 - PERITONEAL ABSCESS
[2017-05-07] MEDS ORDERED: LORazepam 2 MG/ML SDV VIAL ONE (21:02)
[2017-05-08] MEDS: PIPERACILLIN/TAZOB 3.375 GM 3.375 GM in DEXTROSE 5%-WATER - 50 ML IVPB SCH ×3 (01:30→18:07)
[2017-05-08] MEDS ORDERED: DEXTROSE 5%-WATER - 50 ML IVPB ONE ×3 (01:49→18:00)
[2017-05-08] MEDS ORDERED: PIPERACILLIN/TAZOBACTAM 3.375 GM VIAL IVPB ONE ×3 (01:49→18:00)
[2017-05-08] MEDS: HYDROmorphone HCL CARPU-JECT 1 MG/1 ML DISP.SYRIN IVPUSH PRN ×5 (02:02→19:45)
[2017-05-08] MEDS: SODIUM CHLORIDE 1,000 ML IV SCH ×2 (04:08→06:51)
--- NOTE | 2017-05-08 07:47 | PN ---
Progress Note (short form) - Note Progress Note: Pt had loose/watery stool yesterday. Pain improving, less pressure when urinating. Pain tolerable with dilaudid. Vital Signs Period Temp Pulse Resp BP Sys/Hou Pulse Ox Last 24 Hr 98.1 F-99.6 F 64-78 16-20 112-138/62-88 98-98 GEN: Appears comfortable ABD: soft, non-distended, LLQ tenderness with palpation Microbiology 05/06/17 10:00 Urine - Urine Clean Catch Urine Culture - Final NO GROWTH OBTAINED 05/05/17 23:35 Blood - Peripheral Venous Blood Culture - Preliminary NO GROWTH OBTAINED AFTER 48 HOURS, INCUBATION TO CONTINUE FOR 3 DAYS. 05/05/17 23:35 Blood - Peripheral Venous Blood Culture - Preliminary NO GROWTH OBTAINED AFTER 48 HOURS, INCUBATION TO CONTINUE FOR 3 DAYS. Problem List - Problems (1) Perforated diverticulum of large intestine Assessment/Plan: Will continue with npo/iv fluids and bowel rest. Fevers improved since admission, Continue IV abx treatment as per ID. Surgery to follow the patient, D/w Dr. Peck, pt to have repeat CT scan in 1 to 2 days Code(s): K57.20 - DVTRCLI OF LG INT W PERFORATION AND ABSCESS W/O BLEEDING
[2017-05-08 07:52] LABS: BASOPHIL 0.2 % (0-2.0); MCHC 33.6 g/dl (32.0-35.9); MEAN CELL VOLUME 89.2 fl (80-96); MEAN PLT VOLUME 7.6 fl (7.5-11.1); NEUTROPHILS 73.3 % (42.8-82.8); PLATELET COUNT 158 K/MM3 (134-434); RDW 13.6 % (11.9-15.9)
[2017-05-08 08:48] LABS: ALBUMIN 2.9 g/dl (3.4-5.0); ALK PHOS 75 U/L (45-117); ANION GAP 11 (8-16); BILIRUBIN,TOTAL 0.7 mg/dL (0.2-1.0); CALCIUM 8.2 mg/dL (8.5-10.1); CO2 22 mmol/L (21-32); CREATININE 0.6 mg/dL (0.7-1.3); GLUCOSE,RANDOM 68 mg/dL (74-106); SGOT/AST 10 U/L (15-37); SGPT/ALT 16 U/L (12-78); TOT PROT 5.7 g/dl (6.4-8.2)
[2017-05-08] MEDS ORDERED: SODIUM CHLORIDE 100 ML IVPB ONE (10:32)
[2017-05-08] MEDS ORDERED: PANTOPRAZOLE SODIUM 40 MG VIAL ONE (10:32)
[2017-05-08] MEDS: PANTOPRAZOLE SODIUM 40 MG in SODIUM CHLORIDE 100 ML IVPB SCH (10:39)
--- NOTE | 2017-05-08 13:56 | PN ---
Progress Note (short form) - Note Progress Note: Patient has less abdominal pain Afebrile, VSS Abd: mild LLQ tenderness WBC = 7K A: Clinically improving P: repeat CTA/P in am May have ice chips Problem List - Problems (1) Diverticulitis of both large and small intestine with abscess Code(s): K57.40 - DVTRCLI OF BOTH SMALL AND LG INT W PERF AND ABSCS W/O BLEED Qualifiers: Diverticulitis bleeding: without bleeding Qualified Code(s): K57.40 - Diverticulitis of both small and large intestine with perforation and abscess without bleeding
--- NOTE | 2017-05-08 16:13 | PN ---
Physical Exam: SUBJECTIVE: Patient seen and examined. He has lower abd tenderness, better than yesterday, medication helps. OBJECTIVE: Vital Signs Period Temp Pulse Resp BP Sys/Hou Pulse Ox Last 24 Hr 98.1 F-99.1 F 64-80 16-20 112-138/64-88 96-98 PE Neuro: alert, awake, cn 2-12 intact Pulm: CTAB CV: s1 s2 rrr nomrg Abd: lower abd tenderness to palpation mild RLQ distention soft Ext: warm, no le edema Laboratory Results - last 24 hr 05/08/17 05/08/17 07:40 07:40 WBC 7.0 D RBC 3.69 L Hgb 11.1 L Hct 32.9 L MCV 89.2 MCH 30.0 MCHC 33.6 RDW 13.6 Plt Count 158 MPV 7.6 Neutrophils % 73.3 Lymphocytes % 16.3 Monocytes % 8.2 Eosinophils % 2.0 D Basophils % 0.2 Sodium 137 Potassium 3.8 Chloride 104 Carbon Dioxide 22 Anion Gap 11 BUN 9 Creatinine 0.6 L Creat Clearance w eGFR > 60 Random Glucose 68 L Calcium 8.2 L Magnesium 2.0 Total Bilirubin 0.7 D AST 10 L ALT 16 Alkaline Phosphatase 75 Total Protein 5.7 L Albumin 2.9 L Active Medications Generic Name Dose Route Start Last Admin Trade Name Krishnaq PRN Reason Stop Dose Admin Hydromorphone HCl 2 mg 05/06/17 17:58 05/08/17 14:45 Dilaudid Injection - IVPUSH 2 mg Q4H PRN Administration PAIN Pantoprazole Sodium 40 mg/ 100 mls @ 200 mls/hr 05/06/17 10:00 05/08/17 10:39 Sodium Chloride IVPB 200 mls/hr DAILY ARIANA Administration Piperacillin Sod/Tazobactam 50 mls @ 100 mls/hr 05/06/17 18:00 05/08/17 10:39 Sod 3.375 gm/ Dextrose IVPB 100 mls/hr Q8H-IV ARIANA Administration Protocol Amino Acids 1,000 mls @ 84 mls/hr 05/08/17 16:15 Clinimix - IV Q12H ARIANA Lorazepam 0.5 mg 05/07/17 13:40 05/07/17 21:08 Ativan Injection - IVPB 0.5 mg Q6H PRN Administration ANXIETY Ondansetron HCl 4 mg 05/05/17 23:33 Zofran Injection IVPB Q6H PRN NAUSEA Imaging: - CTAP 05/05: Diverticulosis and acute diverticulitis involving the mid and mid to distal sigmoid colon with suggestion of small collection/abscess and extraluminal air pockets measuring 2cm in diameter best visualized on axial image. Thickening of the posterior urinary bladder wall likely due to surrounding inflammation. Assessment: 52 year old male with pmhx diverticulitis (with 4 episodes in the last 2 years) admitted with left lower quadrant pain. Plan: 1. Diverticulitis with abscess and contained perforation - WBC wnl today - Continue Zosyn (day 2) - Repeat CTAP tomorrow or Saturday per surgery - Bowel rest - NPO - Change fluids to clinimix, NPO for 3 days - Protonix daily 2. DVT ppx - Heparin sq Visit type - Emergency Visit Emergency Visit: Yes ED Registration Date: 05/05/17 Care time: The patient presented to the Emergency Department on the above date and was hospitalized for further evaluation of their emergent condition. - New Patient This patient is new to me today: Yes Date on this admission: 05/08/17 - Critical Care Critical Care patient: No
[2017-05-08] MEDS: AMINO ACIDS 4.25%/D5W 1,000 ML IV SCH (18:07)
--- NOTE | 2017-05-08 19:15 | PN ---
Progress Note (short form) - Note Progress Note: Pain improved NPO No acute events Vital Signs Period Temp Pulse Resp BP Sys/Hou Pulse Ox Last 24 Hr 98.1 F-98.8 F 64-80 16-20 120-138/69-88 96-98 Abd soft, less tender CBC, BMP 05/08/17 07:40 05/08/17 07:40 Continue antibiotics Being followed by Dr Peck- colorectal surgery Will defer plan to Dr Peck Thank you Problem List - Problems (1) Perforated diverticulum of large intestine Code(s): K57.20 - DVTRCLI OF LG INT W PERFORATION AND ABSCESS W/O BLEEDING (2) Intra-abdominal abscess Code(s): K65.1 - PERITONEAL ABSCESS
[2017-05-08] MEDS ORDERED: LORazepam 2 MG/ML SDV VIAL ONE (20:56)
[2017-05-09] MEDS: HYDROmorphone HCL CARPU-JECT 1 MG/1 ML DISP.SYRIN IVPUSH PRN ×5 (01:00→20:23)
[2017-05-09] MEDS ORDERED: PIPERACILLIN/TAZOBACTAM 3.375 GM VIAL IVPB ONE ×3 (01:04→17:39)
[2017-05-09] MEDS ORDERED: DEXTROSE 5%-WATER - 50 ML IVPB ONE ×3 (01:04→17:39)
[2017-05-09] MEDS: PIPERACILLIN/TAZOB 3.375 GM 3.375 GM in DEXTROSE 5%-WATER - 50 ML IVPB SCH ×3 (01:22→17:44)
[2017-05-09] MEDS: AMINO ACIDS 4.25%/D5W 1,000 ML IV SCH ×3 (04:30→16:43)
[2017-05-09 09:39] LABS: BASOPHIL 0.4 % (0-2.0); EOSINOPHIL 3.3 % (0-4.5); MCH 29.1 pg (25.7-33.7); MCHC 32.9 g/dl (32.0-35.9); MEAN CELL VOLUME 88.5 fl (80-96); MEAN PLT VOLUME 7.9 fl (7.5-11.1); NEUTROPHILS 67.3 % (42.8-82.8); PLATELET COUNT 210 K/MM3 (134-434); RDW 13.5 % (11.9-15.9); WHITE BLOOD COUNT 5.5 K/mm3 (4.0-10.0)
[2017-05-09] MEDS ORDERED: PANTOPRAZOLE SODIUM 40 MG VIAL ONE (09:56)
[2017-05-09] MEDS ORDERED: SODIUM CHLORIDE 100 ML IVPB ONE (09:56)
[2017-05-09] MEDS: PANTOPRAZOLE SODIUM 40 MG in SODIUM CHLORIDE 100 ML IVPB SCH (10:00)
[2017-05-09 10:28] LABS: ALBUMIN 3.2 g/dl (3.4-5.0); ALK PHOS 77 U/L (45-117); ANION GAP 12 (8-16); BILIRUBIN,TOTAL 0.7 mg/dL (0.2-1.0); CALCIUM 8.9 mg/dL (8.5-10.1); CO2 23 mmol/L (21-32); CREATININE 0.5 mg/dL (0.7-1.3); GLUCOSE,RANDOM 93 mg/dL (74-106); SGOT/AST 10 U/L (15-37); SGPT/ALT 19 U/L (12-78); TOT PROT 6.4 g/dl (6.4-8.2)
--- NOTE | 2017-05-09 11:20 | PN ---
Physical Exam: SUBJECTIVE: Patient seen and examined at the bedside. He reports feeling better. Pain is being managed, less anxious Denies any nausea or vomiting. Had small BM this morning, no diarrhea. Reports BM was small but solid LLQ pain minimal and improving. Reports feeling overall better but at times feels "clammy". OBJECTIVE: Had repeat CT scan of the abdomen, results pending Now on Clinimax Clinically improved Vital Signs Period Temp Pulse Resp BP Sys/Hou Pulse Ox Last 24 Hr 97.3 F-98.4 F 58-80 16-20 120-150/74-86 98 GENERAL: Awake, alert, and fully oriented, in no acute distress. HEAD: Normal with no signs of trauma. EYES: Pupils equal, round and reactive to light, extraocular movements intact, sclera anicteric, conjunctiva clear. No lid lag. EARS, NOSE, THROAT: Ears normal, nares patent, oropharynx clear without exudates. Moist mucous membranes. NECK: Normal range of motion, supple without lymphadenopathy, JVD, or masses. LUNGS: Breath sounds equal, clear to auscultation bilaterally. No wheezes, and no crackles. No accessory muscle use. HEART: Regular rate and rhythm, normal S1 and S2 without murmur, rub or gallop. ABDOMEN: Soft, not distended, + minimal LLQ abdominal pain, no guarding, no rebound, no masses. MUSCULOSKELETAL: Normal range of motion at all joints. No bony deformities or tenderness. No CVA tenderness. UPPER EXTREMITIES: left arm in sling s/p work injury/harpreet, hands warm, normal ROM - denies pain to left arm LOWER EXTREMITIES: 2+ pulses, warm, well-perfused. No calf tenderness. No peripheral edema. NEUROLOGICAL: Cranial nerves II-XII intact. Normal speech. Normal gait. PSYCHIATRIC: cooperative SKIN: Warm, dry, normal turgor, no rashes or lesions noted, normal capillary refill. Laboratory Results - last 24 hr 05/09/17 05/09/17 09:00 09:00 WBC 5.5 RBC 4.09 Hgb 11.9 Hct 36.2 MCV 88.5 MCH 29.1 MCHC 32.9 RDW 13.5 Plt Count 210 D MPV 7.9 Neutrophils % 67.3 Lymphocytes % 20.6 D Monocytes % 8.4 Eosinophils % 3.3 Basophils % 0.4 Sodium 138 Potassium 3.9 Chloride 103 Carbon Dioxide 23 Anion Gap 12 BUN 6 L D Creatinine 0.5 L Creat Clearance w eGFR > 60 Random Glucose 93 D Calcium 8.9 Total Bilirubin 0.7 AST 10 L ALT 19 Alkaline Phosphatase 77 Total Protein 6.4 Albumin 3.2 L Active Medications Generic Name Dose Route Start Last Admin Trade Name Freq PRN Reason Stop Dose Admin Hydromorphone HCl 2 mg 05/06/17 17:58 05/09/17 11:05 Dilaudid Injection - IVPUSH 2 mg Q4H PRN Administration PAIN Pantoprazole Sodium 40 mg/ 100 mls @ 200 mls/hr 05/06/17 10:00 05/09/17 10:00 Sodium Chloride IVPB 200 mls/hr DAILY ARIANA Administration Piperacillin Sod/Tazobactam 50 mls @ 100 mls/hr 05/06/17 18:00 05/09/17 09:59 Sod 3.375 gm/ Dextrose IVPB 100 mls/hr Q8H-IV ARIANA Administration Protocol Amino Acids 1,000 mls @ 84 mls/hr 05/08/17 16:15 05/09/17 10:00 Clinimix - IV 84 mls/hr Q12H ARIANA Administration Lorazepam 0.5 mg 05/07/17 13:40 05/08/17 21:15 Ativan Injection - IVPB 0.5 mg Q6H PRN Administration ANXIETY Ondansetron HCl 4 mg 05/05/17 23:33 Zofran Injection IVPB Q6H PRN NAUSEA ASSESSMENT/PLAN: Patient is a 52 year old male with a significant past medical history of diverticulitis (with 4 episodes in the last 2 years). He presented to the ER on 05/05/2017 with left lower quadrant pain. Abdominal pain associated with nausea vomiting and diarrhea. He denies blood in vomit or stool. He denies any chest pain, fever or chills. Imaging: Abdominal CT 05/05/2017: Findings consistent with diverticulosis and acute diverticulitis involving the mid and mid to distal sigmoid colon with suggestion of small collection/abscess and extraluminal air pockets measuring 2cm in diameter best visualized on axial image. Thickening of the posterior urinary bladder wall likely due to surrounding inflammation. Abdominal CT 05/09/2017: pending read GI: Diverticulitis with 2cm abscess and contained perforation seen on CT scan A/P: WBC tending down, now 5.5, afebrile, + pt reports less LLQ abdominal pain Surgery consulted and saw patient On Zosyn (day #4), Given one dose of Ceftriaxone on 05/05/17 ID following, notes reviewed Blood cultures ngtd Dilaudid 2mg q6 for pain Zofran for nausea, protonix for GI prophylaxis Now on clinimax NPO, bowel rest Monitor labs, vitals, pain F.E.N. Fluids: Clinimax Electrolytes: monitor electrolytes Nutrition: NPO now, advance diet as per surgery Prophylaxis: DVT: ambulation GI; Protonix iv daily Disposition: Full Code. Visit type - Emergency Visit Emergency Visit: Yes ED Registration Date: 05/05/17 Care time: The patient presented to the Emergency Department on the above date and was hospitalized for further evaluation of their emergent condition. - New Patient This patient is new to me today: No - Critical Care Critical Care patient: No - Discharge Referral Referred to [facility] Med P.C.: No
--- NOTE | 2017-05-09 13:08 | PN ---
Progress Note (short form) - Note Progress Note: Pt states that he is feeling better, had formed/soft bm this am. Had repeat CT scan completed this am. Vital Signs Period Temp Pulse Resp BP Sys/Hou Pulse Ox Last 24 Hr 97.3 F-98.4 F 58-80 16-20 120-150/74-86 98 GEN: Alert and in NAD ABD: soft, non-disetended. Mild LLQ tenderness with palpation. No guarding or rebound. CBC, BMP 05/09/17 09:00 05/09/17 09:00 Problem List - Problems (1) Perforated diverticulum of large intestine Assessment/Plan: Pt with improved fever, leukocytosis Repeat ct scan completed today, D/W Dr. ROMERO if the scan is improved may begin trial of clears Code(s): K57.20 - DVTRCLI OF LG INT W PERFORATION AND ABSCESS W/O BLEEDING
--- NOTE | 2017-05-09 13:40 | PN ---
Progress Note, Physician History of Present Illness: pain better patient had a bowel movement could not be drained patient feels much better - Current Medication List Current Medications: Active Medications Hydromorphone HCl (Dilaudid Injection -) 2 mg IVPUSH Q4H PRN PRN Reason: PAIN Last Admin: 05/09/17 11:05 Dose: 2 mg Pantoprazole Sodium 40 mg/ (Sodium Chloride) 100 mls @ 200 mls/hr IVPB DAILY ARIANA Last Admin: 05/09/17 10:00 Dose: 200 mls/hr Piperacillin Sod/Tazobactam (Sod 3.375 gm/ Dextrose) 50 mls @ 100 mls/hr IVPB Q8H-IV ARIANA PRN Reason: Protocol Last Admin: 05/09/17 09:59 Dose: 100 mls/hr Amino Acids (Clinimix -) 1,000 mls @ 84 mls/hr IV Q12H ARIANA Last Admin: 05/09/17 10:00 Dose: 84 mls/hr Lorazepam (Ativan Injection -) 0.5 mg IVPB Q6H PRN PRN Reason: ANXIETY Last Admin: 05/08/17 21:15 Dose: 0.5 mg Ondansetron HCl (Zofran Injection) 4 mg IVPB Q6H PRN PRN Reason: NAUSEA - Objective Vital Signs: Vital Signs Temperature 97.8 F 05/09/17 10:00 Pulse Rate 67 05/09/17 10:00 Respiratory Rate 20 05/09/17 10:00 Blood Pressure 143/86 05/09/17 10:00 O2 Sat by Pulse Oximetry (%) 98 05/08/17 21:00 Constitutional: Yes: No Distress, Calm Cardiovascular: Yes: Regular Rate and Rhythm Respiratory: Yes: Regular, CTA Bilaterally Gastrointestinal: Yes: Soft, Hypoactive Bowel Sounds Musculoskeletal: Yes: WNL Extremities: Yes: WNL Neurological: Yes: Alert, Oriented Psychiatric: Yes: Alert, Oriented Labs: CBC, BMP 05/09/17 09:00 05/09/17 09:00 Assessment/Plan patient with repeated episode of diverticulitis Problem List - Problems (1) Diverticulitis of both large and small intestine with abscess Code(s): K57.40 - DVTRCLI OF BOTH SMALL AND LG INT W PERF AND ABSCS W/O BLEED Qualifiers: Diverticulitis bleeding: without bleeding Qualified Code(s): K57.40 - Diverticulitis of both small and large intestine with perforation and abscess without abd pain leukocytosis plan continue current mgmt await for results of repeat ct scan rest as per surgery and primary care
--- NOTE | 2017-05-09 20:17 | PN ---
Progress Note (short form) - Note Progress Note: Patient had BM's today Minimal abdominal pain Afebrile, VSS Abd: no LLQ or suprapubic tenderness WBC = 5k CTA/P - 3 cm abscess between bladder and distal sigmoid colon A/P: Perforated diverticulitis with pericolic abscess reconsult IR clear liquid diet in am Continue IVF, IV abx Problem List - Problems (1) Diverticulitis of both large and small intestine with abscess Code(s): K57.40 - DVTRCLI OF BOTH SMALL AND LG INT W PERF AND ABSCS W/O BLEED Qualifiers: Diverticulitis bleeding: without bleeding Qualified Code(s): K57.40 - Diverticulitis of both small and large intestine with perforation and abscess without bleeding
[2017-05-09] MEDS: LORazepam 2 MG/ML SDV VIAL IVPUSH PRN (21:59)
[2017-05-10] MEDS ORDERED: PIPERACILLIN/TAZOBACTAM 3.375 GM VIAL IVPB ONE ×4 (00:42→20:03)
[2017-05-10] MEDS ORDERED: DEXTROSE 5%-WATER - 50 ML IVPB ONE ×4 (00:42→20:03)
[2017-05-10] MEDS: HYDROmorphone HCL CARPU-JECT 1 MG/1 ML DISP.SYRIN IVPUSH PRN ×5 (00:47→20:37)
[2017-05-10] MEDS: PIPERACILLIN/TAZOB 3.375 GM 3.375 GM in DEXTROSE 5%-WATER - 50 ML IVPB SCH ×3 (02:00→17:27)
[2017-05-10] MEDS: AMINO ACIDS 4.25%/D5W 1,000 ML IV SCH ×3 (04:48→17:15)
[2017-05-10 07:43] LABS: BASOPHIL 0.6 % (0-2.0); EOSINOPHIL 5.3 % (0-4.5); MCH 29.6 pg (25.7-33.7); MEAN CELL VOLUME 87.3 fl (80-96); MEAN PLT VOLUME 7.5 fl (7.5-11.1); NEUTROPHILS 52.5 % (42.8-82.8); PLATELET COUNT 227 K/MM3 (134-434); RDW 13.6 % (11.9-15.9); WHITE BLOOD COUNT 4.2 K/mm3 (4.0-10.0)
[2017-05-10 07:53] LABS: ALBUMIN 2.9 g/dl (3.4-5.0); ANION GAP 9 (8-16); CALCIUM 9.1 mg/dL (8.5-10.1); CO2 28 mmol/L (21-32); GLUCOSE,RANDOM 104 mg/dL (74-106); MAGNESIUM 1.9 mg/dL (1.8-2.4); SGOT/AST 9 U/L (15-37); SGPT/ALT 19 U/L (12-78)
[2017-05-10 07:56] LABS: ALK PHOS 67 U/L (45-117); BILIRUBIN,TOTAL 0.6 mg/dL (0.2-1.0); CREATININE 0.6 mg/dL (0.7-1.3); TOT PROT 5.9 g/dl (6.4-8.2)
[2017-05-10] MEDS ORDERED: SODIUM CHLORIDE 100 ML IVPB ONE (09:32)
[2017-05-10] MEDS ORDERED: PANTOPRAZOLE SODIUM 40 MG VIAL ONE (09:32)
[2017-05-10] MEDS: PANTOPRAZOLE SODIUM 40 MG in SODIUM CHLORIDE 100 ML IVPB SCH (09:36)
--- NOTE | 2017-05-10 11:18 | PN ---
Physical Exam: SUBJECTIVE: Patient seen and examined at the bedside. He states his pain is 6/10 but managed with pain meds Had some jello and tea today without any nausea or vomiting. OBJECTIVE: IR consult to re-evaluate CT scan report as per surgery Vital Signs Period Temp Pulse Resp BP Sys/Hou Pulse Ox Last 24 Hr 97.5 F-98.7 F 49-73 16-20 128-148/64-82 GENERAL: Awake, alert, and fully oriented, in no acute distress. HEAD: Normal with no signs of trauma. EYES: Pupils equal, round and reactive to light, extraocular movements intact, sclera anicteric, conjunctiva clear. No lid lag. EARS, NOSE, THROAT: Ears normal, nares patent, oropharynx clear without exudates. Moist mucous membranes. NECK: Normal range of motion, supple without lymphadenopathy, JVD, or masses. LUNGS: Breath sounds equal, clear to auscultation bilaterally. No wheezes, and no crackles. No accessory muscle use. HEART: Regular rate and rhythm, normal S1 and S2 without murmur, rub or gallop. ABDOMEN: Soft, not distended, + minimal LLQ abdominal pain, no guarding, no rebound, no masses. MUSCULOSKELETAL: Normal range of motion at all joints. No bony deformities or tenderness. No CVA tenderness. UPPER EXTREMITIES: left arm in sling s/p work injury/muscle/rotator cuff tear on 04/04/17. Was receiving outpatient PT. Hands warm, normal ROM - denies pain to left arm LOWER EXTREMITIES: 2+ pulses, warm, well-perfused. No calf tenderness. No peripheral edema. NEUROLOGICAL: Normal speech. Normal gait. PSYCHIATRIC: cooperative SKIN: Warm, dry, normal turgor, no rashes or lesions noted, normal capillary refill. Laboratory Results - last 24 hr 05/10/17 05/10/17 06:30 06:30 WBC 4.2 RBC 3.98 L Hgb 11.8 Hct 34.7 L MCV 87.3 MCH 29.6 MCHC 34.0 RDW 13.6 Plt Count 227 MPV 7.5 Neutrophils % 52.5 D Lymphocytes % 31.2 D Monocytes % 10.4 H Eosinophils % 5.3 H Basophils % 0.6 Sodium 140 Potassium 3.6 Chloride 103 Carbon Dioxide 28 D Anion Gap 9 BUN 7 Creatinine 0.6 L Creat Clearance w eGFR > 60 Random Glucose 104 Calcium 9.1 Magnesium 1.9 Total Bilirubin 0.6 AST 9 L ALT 19 Alkaline Phosphatase 67 Total Protein 5.9 L Albumin 2.9 L Active Medications Generic Name Dose Route Start Last Admin Trade Name Freq PRN Reason Stop Dose Admin Hydromorphone HCl 2 mg 05/06/17 17:58 05/10/17 07:14 Dilaudid Injection - IVPUSH 2 mg Q4H PRN Administration PAIN Pantoprazole Sodium 40 mg/ 100 mls @ 200 mls/hr 05/06/17 10:00 05/10/17 09:36 Sodium Chloride IVPB 200 mls/hr DAILY ARIANA Administration Piperacillin Sod/Tazobactam 50 mls @ 100 mls/hr 05/06/17 18:00 05/10/17 10:05 Sod 3.375 gm/ Dextrose IVPB 100 mls/hr Q8H-IV ARIANA Administration Protocol Amino Acids 1,000 mls @ 84 mls/hr 05/08/17 16:15 05/10/17 04:48 Clinimix - IV 84 mls/hr Q12H ARIANA Administration Lorazepam 0.5 mg 05/09/17 21:35 05/09/17 21:59 Ativan Injection - IVPUSH 0.5 mg Q6H PRN Administration ANXIETY Ondansetron HCl 4 mg 05/05/17 23:33 Zofran Injection IVPB Q6H PRN NAUSEA ASSESSMENT/PLAN: Patient is a 52 year old male with a significant past medical history of diverticulitis (with 4 episodes in the last 2 years). He presented to the ER on 05/05/2017 with left lower quadrant pain. Abdominal pain associated with nausea vomiting and diarrhea. He denies blood in vomit or stool. He denies any chest pain, fever or chills. Imaging: Abdominal CT 05/05/2017: Findings consistent with diverticulosis and acute diverticulitis involving the mid and mid to distal sigmoid colon with suggestion of small collection/abscess and extraluminal air pockets measuring 2cm in diameter best visualized on axial image. Thickening of the posterior urinary bladder wall likely due to surrounding inflammation. Abdominal CT 05/09/2017: Acute sigmoid diverticulitis with multiple well developed abscess insinuated between the sigmoid colon and urinary bladder, now measuring apx 3.0 x 2.0 x 2.5cm. GI: Diverticulitis with abscess and contained perforation - acute A/P: Diverticulitis with 2cm abscess and contained perforation seen on CT scan Repeat CT abd/pel 05/09/17 shows 3 cm abscess between bladder and distal sigmoid colon with multiple well developed abscess Will ask IR to evaluate if there is a need to drain WBC wnl, no fever, pain improving, able to tolerate small amounts of ID following, notes reviewed Blood cultures ngtd Dilaudid 2mg q6 for pain Zofran for nausea, protonix for GI prophylaxis Now on clinimax, will stop clinimax once patient's nutritional status improves On clears, monitor intake Monitor labs, vitals, pain F.E.N. Fluids: Clinimax - discontinue once tolerating diet Electrolytes: monitor electrolytes Nutrition: clears, advance diet as per surgery Prophylaxis: DVT: ambulation GI; Protonix iv daily Disposition: Full Code. Visit type - Emergency Visit Emergency Visit: Yes ED Registration Date: 05/05/17 Care time: The patient presented to the Emergency Department on the above date and was hospitalized for further evaluation of their emergent condition. - New Patient This patient is new to me today: No - Critical Care Critical Care patient: No - Discharge Referral Referred to [facility] Med P.C.: No
--- NOTE | 2017-05-10 14:09 | PN ---
Progress Note, Physician History of Present Illness: patient stable no new isues took some liquids - Current Medication List Current Medications: Active Medications Hydromorphone HCl (Dilaudid Injection -) 2 mg IVPUSH Q4H PRN PRN Reason: PAIN Last Admin: 05/10/17 11:48 Dose: 2 mg Pantoprazole Sodium 40 mg/ (Sodium Chloride) 100 mls @ 200 mls/hr IVPB DAILY ARIANA Last Admin: 05/10/17 09:36 Dose: 200 mls/hr Piperacillin Sod/Tazobactam (Sod 3.375 gm/ Dextrose) 50 mls @ 100 mls/hr IVPB Q8H-IV ARIANA PRN Reason: Protocol Last Admin: 05/10/17 10:05 Dose: 100 mls/hr Amino Acids (Clinimix -) 1,000 mls @ 84 mls/hr IV Q12H ARIANA Last Admin: 05/10/17 04:48 Dose: 84 mls/hr Lorazepam (Ativan Injection -) 0.5 mg IVPUSH Q6H PRN PRN Reason: ANXIETY Last Admin: 05/09/17 21:59 Dose: 0.5 mg Ondansetron HCl (Zofran Injection) 4 mg IVPB Q6H PRN PRN Reason: NAUSEA - Objective Vital Signs: Vital Signs Temperature 98.0 F 05/10/17 08:54 Pulse Rate 64 05/10/17 08:54 Respiratory Rate 20 05/10/17 08:54 Blood Pressure 148/78 05/10/17 08:54 O2 Sat by Pulse Oximetry (%) 96 05/10/17 09:00 Constitutional: Yes: No Distress, Calm Cardiovascular: Yes: Regular Rate and Rhythm Respiratory: Yes: Regular, CTA Bilaterally Gastrointestinal: Yes: Soft, Hypoactive Bowel Sounds Musculoskeletal: Yes: WNL Extremities: Yes: WNL Neurological: Yes: Alert, Oriented Psychiatric: Yes: Alert, Oriented Labs: CBC, BMP 05/10/17 06:30 05/10/17 06:30 - ....Imaging Cat Scan: Report Reviewed, Image Reviewed Assessment/Plan patient with repeated episode of diverticulitis Problem List - Problems (1) Diverticulitis of both large and small intestine with abscess Code(s): K57.40 - DVTRCLI OF BOTH SMALL AND LG INT W PERF AND ABSCS W/O BLEED Qualifiers: Diverticulitis bleeding: without bleeding Qualified Code(s): K57.40 - Diverticulitis of both small and large intestine with perforation and abscess without abd pain leukocytosis plan continue current mgmt repeat ct scan seen and results noted await for surgery to decide iv abx to continue for the time being
--- NOTE | 2017-05-10 17:06 | PN ---
Progress Note (short form) - Note Progress Note: Surgery Patient tolerated clear liquids with some crampy sensation. Continues to have BM's Afebrile, VSS Abd: soft, no tnederness WBC = 4k IR recommendation - abscess is too deep and small as to require drainage A/P: Resolving H[place]hey 1 perforated diverticulitis advance to full liquid diet in am Urgent surgical intervention if pain recurs and unable to advance diet, otherwise will need semi-elective colectomy after inflammatory process subsides Problem List - Problems (1) Diverticulitis of both large and small intestine with abscess Code(s): K57.40 - DVTRCLI OF BOTH SMALL AND LG INT W PERF AND ABSCS W/O BLEED Qualifiers: Diverticulitis bleeding: without bleeding Qualified Code(s): K57.40 - Diverticulitis of both small and large intestine with perforation and abscess without bleeding
[2017-05-10] MEDS: LORazepam 2 MG/ML SDV VIAL IVPUSH PRN (22:21)
[2017-05-11] MEDS: PIPERACILLIN/TAZOB 3.375 GM 3.375 GM in DEXTROSE 5%-WATER - 50 ML IVPB SCH ×3 (02:03→18:47)
[2017-05-11] MEDS: HYDROmorphone HCL CARPU-JECT 2 MG/1 ML DISP.SYRIN IVPUSH PRN ×4 (03:45→20:55)
[2017-05-11] MEDS: AMINO ACIDS 4.25%/D5W 1,000 ML IV SCH ×4 (04:00→17:39)
[2017-05-11 08:45] LABS: BASOPHIL 0.7 % (0-2.0); EOSINOPHIL 5.7 % (0-4.5); MCH 29.4 pg (25.7-33.7); MCHC 33.8 g/dl (32.0-35.9); MEAN CELL VOLUME 86.9 fl (80-96); MEAN PLT VOLUME 7.2 fl (7.5-11.1); PLATELET COUNT 260 K/MM3 (134-434); RDW 13.9 % (11.9-15.9); WHITE BLOOD COUNT 4.3 K/mm3 (4.0-10.0)
[2017-05-11 09:14] LABS: ALBUMIN 3.2 g/dl (3.4-5.0); ALK PHOS 69 U/L (45-117); ANION GAP 10 (8-16); BILIRUBIN,TOTAL 0.3 mg/dL (0.2-1.0); CALCIUM 9.1 mg/dL (8.5-10.1); CO2 28 mmol/L (21-32); CREATININE 0.6 mg/dL (0.7-1.3); GLUCOSE,RANDOM 94 mg/dL (74-106); MAGNESIUM 2.1 mg/dL (1.8-2.4); SGOT/AST 21 U/L (15-37); SGPT/ALT 26 U/L (12-78); TOT PROT 6.1 g/dl (6.4-8.2)
[2017-05-11] MEDS ORDERED: PIPERACILLIN/TAZOBACTAM 3.375 GM VIAL IVPB ONE ×2 (10:04→18:09)
[2017-05-11] MEDS ORDERED: PANTOPRAZOLE SODIUM 40 MG VIAL ONE (10:04)
[2017-05-11] MEDS ORDERED: SODIUM CHLORIDE 100 ML IVPB ONE (10:04)
[2017-05-11] MEDS ORDERED: DEXTROSE 5%-WATER - 50 ML IVPB ONE ×2 (10:04→18:09)
[2017-05-11] MEDS: PANTOPRAZOLE SODIUM 40 MG in SODIUM CHLORIDE 100 ML IVPB SCH (10:11)
--- NOTE | 2017-05-11 16:42 | PN ---
Progress Note, Physician History of Present Illness: Pt states he feels generally well. Has some decrease in pain, taking sips of water/juice. Denies fever/chills. No other specific complaints. - Current Medication List Current Medications: Active Medications Hydromorphone HCl (Dilaudid Injection -) 2 mg IVPUSH Q4H PRN PRN Reason: PAIN Last Admin: 05/11/17 15:04 Dose: 2 mg Pantoprazole Sodium 40 mg/ (Sodium Chloride) 100 mls @ 200 mls/hr IVPB DAILY ARIANA Last Admin: 05/11/17 10:11 Dose: 200 mls/hr Piperacillin Sod/Tazobactam (Sod 3.375 gm/ Dextrose) 50 mls @ 100 mls/hr IVPB Q8H-IV ARIANA PRN Reason: Protocol Last Admin: 05/11/17 10:10 Dose: 100 mls/hr Amino Acids (Clinimix -) 1,000 mls @ 84 mls/hr IV Q12H ARIANA Last Admin: 05/11/17 06:36 Dose: Not Given Lorazepam (Ativan Injection -) 0.5 mg IVPUSH Q6H PRN PRN Reason: ANXIETY Last Admin: 05/10/17 22:21 Dose: 0.5 mg Ondansetron HCl (Zofran Injection) 4 mg IVPB Q6H PRN PRN Reason: NAUSEA - Objective Vital Signs: Vital Signs Temperature 98.4 F 05/11/17 14:47 Pulse Rate 59 L 05/11/17 14:47 Respiratory Rate 16 05/11/17 14:47 Blood Pressure 97/67 05/11/17 14:47 O2 Sat by Pulse Oximetry (%) 96 05/10/17 20:43 Constitutional: Yes: No Distress, Calm Eyes: Yes: WNL HENT: Yes: WNL Neck: Yes: WNL Cardiovascular: Yes: Regular Rate and Rhythm Respiratory: Yes: Regular Gastrointestinal: Yes: Normal Bowel Sounds, Soft, Other (minimal tenderness with palpation) Genitourinary: Yes: WNL Neurological: Yes: Alert, Oriented Labs: CBC, BMP 05/11/17 07:00 05/11/17 07:00 - ....Imaging Cat Scan: Report Reviewed Problem List - Problems (1) Abdominal pain Code(s): R10.9 - UNSPECIFIED ABDOMINAL PAIN Qualifiers: Abdominal location: left lower quadrant Qualified Code(s): R10.32 - Left lower quadrant pain (2) Diverticulitis of both large and small intestine with abscess Code(s): K57.40 - DVTRCLI OF BOTH SMALL AND LG INT W PERF AND ABSCS W/O BLEED Qualifiers: Diverticulitis bleeding: without bleeding Qualified Code(s): K57.40 - Diverticulitis of both small and large intestine with perforation and abscess without bleeding (3) Intra-abdominal abscess Code(s): K65.1 - PERITONEAL ABSCESS (4) Perforated diverticulum of large intestine Code(s): K57.20 - DVTRCLI OF LG INT W PERFORATION AND ABSCESS W/O BLEEDING Assessment/Plan Pt relatively stable afebrile, no leukocytosis continue current antibiotics monitor for progressive improvement
[2017-05-11] MEDS ORDERED: INSULIN (NOVOLOG) ASPART 100 UNITS/ML 10ML VIAL ONE (18:09)
[2017-05-11] MEDS ORDERED: PT OWN MED DRAWER 7, Y5N ONE (18:09)
[2017-05-11] MEDS ORDERED: INSULIN DETEMIR 100 UNITS/ML MDV SQ ONE (18:09)
[2017-05-11] MEDS: LORazepam 2 MG/ML SDV VIAL IVPUSH PRN (20:30)
--- NOTE | 2017-05-11 21:22 | PN ---
Physical Exam: SUBJECTIVE: Patient seen and examined at bedside. Denies nausea, vomiting. Several episodes of unformed stool. OBJECTIVE: Vital Signs Period Temp Pulse Resp BP Sys/Hou Pulse Ox Last 24 Hr 97.4 F-98.4 F 55-67 16-20 97-142/66-75 96 GENERAL: The patient is awake, alert, and fully oriented, in no acute distress. HEAD: Normal with no signs of trauma. EYES: PERRL, extraocular movements intact, sclera anicteric, conjunctiva clear. No ptosis. LUNGS: Breath sounds equal, clear to auscultation bilaterally, no wheezes, no crackles, no accessory muscle use. HEART: Regular rate and rhythm, S1, S2 without murmur, rub or gallop. ABDOMEN: Soft, nontender, nondistended, normoactive bowel sounds, no guarding, no rebound EXTREMITIES: 2+ pulses, warm, well-perfused, no edema. NEUROLOGICAL: Cranial nerves II through XII grossly intact. Normal speech, steady gait observed Laboratory Results - last 24 hr 05/11/17 05/11/17 07:00 07:00 WBC 4.3 RBC 4.10 Hgb 12.0 Hct 35.6 MCV 86.9 MCH 29.4 MCHC 33.8 RDW 13.9 Plt Count 260 MPV 7.2 L Neutrophils % 44.0 Lymphocytes % 40.7 H D Monocytes % 8.9 Eosinophils % 5.7 H Basophils % 0.7 Sodium 140 Potassium 3.8 Chloride 102 Carbon Dioxide 28 Anion Gap 10 BUN 9 D Creatinine 0.6 L Creat Clearance w eGFR > 60 Random Glucose 94 Calcium 9.1 Magnesium 2.1 Total Bilirubin 0.3 D AST 21 D ALT 26 D Alkaline Phosphatase 69 Total Protein 6.1 L Albumin 3.2 L Active Medications Generic Name Dose Route Start Last Admin Trade Name Freq PRN Reason Stop Dose Admin Hydromorphone HCl 2 mg 05/10/17 20:36 05/11/17 20:55 Dilaudid Injection - IVPUSH 2 mg Q4H PRN Administration PAIN Pantoprazole Sodium 40 mg/ 100 mls @ 200 mls/hr 05/06/17 10:00 05/11/17 10:11 Sodium Chloride IVPB 200 mls/hr DAILY ARIANA Administration Piperacillin Sod/Tazobactam 50 mls @ 100 mls/hr 05/06/17 18:00 05/11/17 18:47 Sod 3.375 gm/ Dextrose IVPB 100 mls/hr Q8H-IV ARIANA Administration Protocol Amino Acids 1,000 mls @ 84 mls/hr 05/08/17 16:15 05/11/17 17:39 Clinimix - IV 84 mls/hr Q12H ARIANA Administration Lorazepam 0.5 mg 05/09/17 21:35 05/11/17 20:30 Ativan Injection - IVPUSH 0.5 mg Q6H PRN Administration ANXIETY Ondansetron HCl 4 mg 05/05/17 23:33 Zofran Injection IVPB Q6H PRN NAUSEA ASSESSMENT/PLAN 52 year-old male with a PMH significant for h/o diverticulitis (4 episodes in the last 2 years). Admitted for acute diverticulitis with abscess. Imaging: Abdominal CT 05/05/2017: acute diverticulitis involving the distal sigmoid colon with suggestion of small collection/abscess and extraluminal air pockets measuring 2cm in diameter Abdominal CT 05/09/2017: rim-enhancing abscess insinuated between the sigmoid colon and urinary bladder, 3.0 x 2.0 x 2.5cm Diverticulitis with abscess --no fever, leukocytosis resolved --no IR intervention at this time, abscess too small and too deep --tolerating clears --continue Zosyn --urgent surgical intervention if pain recurs and unable to advance diet, otherwise will need semi-elective colectomy after inflammatory process subsides --repeat CT on Saturday, or sooner if clinical deterioration F/E/N Fluids: NS @ 42mL/hr x 1L Electrolytes: replete as indicated Nutrition: full liquids; d/c clinimix DVT prophylaxis: subq heparin, oob, ambulation Dispo: continues to require inpatient care. Full Code. Visit type - Emergency Visit Emergency Visit: Yes ED Registration Date: 05/05/17 Care time: The patient presented to the Emergency Department on the above date and was hospitalized for further evaluation of their emergent condition. - New Patient This patient is new to me today: Yes Date on this admission: 05/11/17 - Critical Care Critical Care patient: No
[2017-05-11] MEDS ORDERED: SODIUM CHLORIDE 1,000 ML IV SCH (22:00)
[2017-05-11] MEDS: HEPARIN NA (PORCINE) 5,000 UNITS/ML 1ML VIAL SQ SCH (22:35)
[2017-05-12] MEDS ORDERED: PIPERACILLIN/TAZOBACTAM 3.375 GM VIAL IVPB ONE ×2 (01:07→09:21)
[2017-05-12] MEDS ORDERED: DEXTROSE 5%-WATER - 50 ML IVPB ONE ×2 (01:08→09:21)
[2017-05-12] MEDS: PIPERACILLIN/TAZOB 3.375 GM 3.375 GM in DEXTROSE 5%-WATER - 50 ML IVPB SCH ×2 (01:19→10:28)
[2017-05-12] MEDS ORDERED: LORazepam 0.5 MG TABLET PO PRN (08:05)
[2017-05-12] MEDS ORDERED: oxyCODONE HCL 5 MG TABLET PO PRN (08:06)
[2017-05-12] MEDS ORDERED: ACETAMINOPHEN 325 MG TABLET (FP) PO PRN (08:07)
[2017-05-12 08:17] LABS: BASOPHIL 0.7 % (0-2.0); EOSINOPHIL 5.4 % (0-4.5); MCH 29.3 pg (25.7-33.7); MCHC 33.7 g/dl (32.0-35.9); MEAN CELL VOLUME 86.8 fl (80-96); MEAN PLT VOLUME 7.5 fl (7.5-11.1); NEUTROPHILS 49.1 % (42.8-82.8); PLATELET COUNT 264 K/MM3 (134-434); RDW 13.9 % (11.9-15.9); WHITE BLOOD COUNT 4.8 K/mm3 (4.0-10.0)
[2017-05-12 08:45] LABS: ALBUMIN 3.3 g/dl (3.4-5.0); ANION GAP 11 (8-16); BILIRUBIN,TOTAL 0.4 mg/dL (0.2-1.0); CO2 26 mmol/L (21-32); CREATININE 0.7 mg/dL (0.7-1.3); GLUCOSE,RANDOM 77 mg/dL (74-106); MAGNESIUM 1.9 mg/dL (1.8-2.4); SGOT/AST 37 U/L (15-37); SGPT/ALT 45 U/L (12-78); TOT PROT 6.1 g/dl (6.4-8.2)
[2017-05-12 08:46] LABS: ALK PHOS 71 U/L (45-117)
[2017-05-12] MEDS ORDERED: PANTOPRAZOLE SODIUM 40 MG VIAL ONE (09:21)
[2017-05-12] MEDS ORDERED: SODIUM CHLORIDE 100 ML IVPB ONE (09:21)
[2017-05-12] MEDS: PANTOPRAZOLE SODIUM 40 MG in SODIUM CHLORIDE 100 ML IVPB SCH (09:24)
[2017-05-12] MEDS: HEPARIN NA (PORCINE) 5,000 UNITS/ML 1ML VIAL SQ SCH ×2 (09:24→21:15)
--- NOTE | 2017-05-12 11:47 | PN ---
Progress Note (short form) - Note Progress Note: Surgery Tolerated full liquids. C/O flatulence Abd: soft, no tenderness WBC = 4+K A/P: clinically improving resolving diverticulitis Advance to regular diet D/C planning once tolerated and F/U as OP. Problem List - Problems (1) Diverticulitis of both large and small intestine with abscess Code(s): K57.40 - DVTRCLI OF BOTH SMALL AND LG INT W PERF AND ABSCS W/O BLEED Qualifiers: Diverticulitis bleeding: without bleeding Qualified Code(s): K57.40 - Diverticulitis of both small and large intestine with perforation and abscess without bleeding
--- NOTE | 2017-05-12 13:24 | PN ---
Progress Note, Physician History of Present Illness: Pt is afebrile, denies significant abdominal pain. Had 2 unformed stools, passing gas. Diet is being advanced. - Current Medication List Current Medications: Active Medications Acetaminophen (Tylenol -) 650 mg PO Q6H PRN PRN Reason: FEVER OR PAIN Heparin Sodium (Porcine) (Heparin -) 5,000 unit SQ BID ARIANA Last Admin: 05/12/17 09:24 Dose: 5,000 unit Pantoprazole Sodium 40 mg/ (Sodium Chloride) 100 mls @ 200 mls/hr IVPB DAILY ARIANA Last Admin: 05/12/17 09:24 Dose: 200 mls/hr Piperacillin Sod/Tazobactam (Sod 3.375 gm/ Dextrose) 50 mls @ 100 mls/hr IVPB Q8H-IV ARIANA PRN Reason: Protocol Last Admin: 05/12/17 10:28 Dose: 100 mls/hr Sodium Chloride (Normal Saline -) 1,000 mls @ 42 mls/hr IV ASDIR ARIANA Stop: 05/12/17 21:49 Last Admin: 05/11/17 22:35 Dose: 42 mls/hr Lorazepam (Ativan -) 0.5 mg PO HS PRN PRN Reason: ANXIETY Ondansetron HCl (Zofran Injection) 4 mg IVPB Q6H PRN PRN Reason: NAUSEA Oxycodone HCl (Roxicodone -) 5 mg PO Q6H PRN PRN Reason: PAIN - Objective Vital Signs: Vital Signs Temperature 97.5 F L 05/12/17 10:00 Pulse Rate 59 L 05/12/17 10:00 Respiratory Rate 16 05/12/17 10:00 Blood Pressure 127/73 05/12/17 10:00 O2 Sat by Pulse Oximetry (%) 97 05/12/17 09:00 Constitutional: Yes: No Distress, Calm Cardiovascular: Yes: Regular Rate and Rhythm Respiratory: Yes: Regular Gastrointestinal: Yes: Normal Bowel Sounds, Soft Genitourinary: Yes: WNL Musculoskeletal: Yes: WNL Extremities: Yes: WNL Neurological: Yes: Alert, Oriented Labs: CBC, BMP 05/12/17 07:00 05/12/17 07:00 Problem List - Problems (1) Abdominal pain Code(s): R10.9 - UNSPECIFIED ABDOMINAL PAIN Qualifiers: Abdominal location: left lower quadrant Qualified Code(s): R10.32 - Left lower quadrant pain (2) Diverticulitis of both large and small intestine with abscess Code(s): K57.40 - DVTRCLI OF BOTH SMALL AND LG INT W PERF AND ABSCS W/O BLEED Qualifiers: Diverticulitis bleeding: without bleeding Qualified Code(s): K57.40 - Diverticulitis of both small and large intestine with perforation and abscess without bleeding (3) Intra-abdominal abscess Code(s): K65.1 - PERITONEAL ABSCESS (4) Perforated diverticulum of large intestine Code(s): K57.20 - DVTRCLI OF LG INT W PERFORATION AND ABSCESS W/O BLEEDING Assessment/Plan Pt is slowly improving Diet being advanced, please monitor switch to levaquin and flagyl PO for 1 more wk with close followup
[2017-05-12] MEDS: metroNIDAZOLE 250 MG TABLET PO SCH ×2 (15:09→21:12)
[2017-05-12] MEDS: LEVOFLOXACIN 500 MG TABLET (FP) PO SCH (15:09)
--- NOTE | 2017-05-12 17:25 | PN ---
Physical Exam: SUBJECTIVE: Patient seen and examined. Denies pain. Denies nausea, vomiting. Tolerating regular food. OBJECTIVE: Vital Signs Period Temp Pulse Resp BP Sys/Hou Pulse Ox Last 24 Hr 97.5 F-98.4 F 51-68 16-20 102-130/54-78 97-97 GENERAL: The patient is awake, alert, and fully oriented, in no acute distress. HEAD: Normal with no signs of trauma. EYES: PERRL, extraocular movements intact, sclera anicteric, conjunctiva clear. No ptosis. LUNGS: Breath sounds equal, clear to auscultation bilaterally, no wheezes, no crackles, no accessory muscle use. HEART: Regular rate and rhythm, S1, S2 without murmur, rub or gallop. ABDOMEN: Soft, nontender, nondistended, normoactive bowel sounds, no guarding, no rebound EXTREMITIES: 2+ pulses, warm, well-perfused, no edema. NEUROLOGICAL: Cranial nerves II through XII grossly intact. Normal speech, steady gait observed Laboratory Results - last 24 hr 05/12/17 05/12/17 07:00 07:00 WBC 4.8 RBC 4.17 Hgb 12.2 Hct 36.2 MCV 86.8 MCH 29.3 MCHC 33.7 RDW 13.9 Plt Count 264 MPV 7.5 Neutrophils % 49.1 Lymphocytes % 36.7 Monocytes % 8.1 Eosinophils % 5.4 H Basophils % 0.7 Sodium 140 Potassium 3.7 Chloride 103 Carbon Dioxide 26 Anion Gap 11 BUN 10 Creatinine 0.7 Creat Clearance w eGFR > 60 Random Glucose 77 Calcium 9.0 Phosphorus 4.0 D Magnesium 1.9 Total Bilirubin 0.4 D AST 37 D ALT 45 D Alkaline Phosphatase 71 Total Protein 6.1 L Albumin 3.3 L Active Medications Generic Name Dose Route Start Last Admin Trade Name Freq PRN Reason Stop Dose Admin Acetaminophen 650 mg 05/12/17 08:07 Tylenol - PO Q6H PRN FEVER OR PAIN Heparin Sodium (Porcine) 5,000 unit 05/11/17 22:00 05/12/17 09:24 Heparin - SQ 5,000 unit BID ARIANA Administration Pantoprazole Sodium 40 mg/ 100 mls @ 200 mls/hr 05/06/17 10:00 05/12/17 09:24 Sodium Chloride IVPB 200 mls/hr DAILY ARIANA Administration Sodium Chloride 1,000 mls @ 42 mls/hr 05/11/17 22:00 05/11/17 22:35 Normal Saline - IV 05/12/17 21:49 42 mls/hr ASDIR ARIANA Administration Levofloxacin 500 mg 05/12/17 06:00 05/12/17 15:09 Levaquin - PO 500 mg DAILY@0600 ARIANA Administration Lorazepam 0.5 mg 05/12/17 08:05 Ativan - PO HS PRN ANXIETY Metronidazole 500 mg 05/12/17 14:00 05/12/17 15:09 Flagyl - PO 500 mg TID ARIANA Administration Ondansetron HCl 4 mg 05/05/17 23:33 Zofran Injection IVPB Q6H PRN NAUSEA Oxycodone HCl 5 mg 05/12/17 08:06 Roxicodone - PO Q6H PRN PAIN ASSESSMENT/PLAN 52 year-old male with a PMH significant for h/o diverticulitis (4 episodes in the last 2 years). Admitted for acute diverticulitis with abscess. Imaging: Abdominal CT 05/05/2017: acute diverticulitis involving the distal sigmoid colon with suggestion of small collection/abscess and extraluminal air pockets measuring 2cm in diameter Abdominal CT 05/09/2017: rim-enhancing abscess insinuated between the sigmoid colon and urinary bladder, 3.0 x 2.0 x 2.5cm Diverticulitis with abscess --no fever, leukocytosis resolved --no IR intervention at this time, abscess too small and too deep --tolerating clears --switched to PO levaquin and flagyl --f/u as outpatient with surgery, will need semi-elective colectomy ~6 weeks F/E/N Fluids: PO intake adequate Electrolytes: replete as indicated Nutrition: regular diet DVT prophylaxis: subq heparin, oob, ambulation Dispo: discharge tomorrow morning. Full Code. Visit type - Emergency Visit Emergency Visit: Yes ED Registration Date: 05/05/17 Care time: The patient presented to the Emergency Department on the above date and was hospitalized for further evaluation of their emergent condition. - New Patient This patient is new to me today: No - Critical Care Critical Care patient: No
[2017-05-13] MEDS: metroNIDAZOLE 250 MG TABLET PO SCH (06:14)
[2017-05-13] MEDS: LEVOFLOXACIN 500 MG TABLET (FP) PO SCH (06:14)
--- NOTE | 2017-05-13 08:50 | DS ---
Physical Exam: SUBJECTIVE: Patient seen and examined OBJECTIVE: Vital Signs Period Temp Pulse Resp BP Sys/Hou Pulse Ox Last 24 Hr 97.5 F-98.0 F 51-68 16-20 108-130/60-78 97-98 PHYSICAL EXAM GENERAL: The patient is awake, alert, and fully oriented, in no acute distress. HEAD: Normal with no signs of trauma. EYES: PERRL, extraocular movements intact, sclera anicteric, conjunctiva clear. ENT: Ears normal, nares patent, oropharynx clear without exudates, moist mucous membranes. NECK: Trachea midline, full range of motion, supple. LUNGS: Breath sounds equal, clear to auscultation bilaterally, no wheezes, no crackles, no accessory muscle use. HEART: Regular rate and rhythm, S1, S2 without murmur, rub or gallop. ABDOMEN: Soft, nontender, nondistended, normoactive bowel sounds, no guarding, no rebound, no hepatosplenomegaly, no masses. EXTREMITIES: 2+ pulses, warm, well-perfused, no edema. NEUROLOGICAL: Cranial nerves II through XII grossly intact. Normal speech, gait not observed. PSYCH: Normal mood, normal affect. SKIN: Warm, dry, normal turgor, no rashes or lesions noted. LABS HOSPITAL COURSE: Date of Admission:05/05/17 Date of Discharge: 05/13/17 Discharge Summary Reason For Visit: AP, DIVERTICULITITIS OF SMALL AND LARGE Current Active Problems Abdominal pain (Acute) Diverticulitis of both large and small intestine with abscess (Acute) Intra-abdominal abscess (Acute) Perforated diverticulum of large intestine (Acute) Condition: Improved - Instructions Diet, Activity, Other Instructions: Three prescriptions have been sent to your pharmacy, two of which are for antibiotics. Take all medications as directed. Please follow up with your surgeon, Dr. Peck, within 2 weeks of your discharge. Return to the emergency department for any new or worsening symptoms. Referrals: Junaid Peck MD [Staff Physician] - 2 Weeks Disposition: HOME - Home Medications Comprehensive Discharge Medication List: Ambulatory Orders Hydrocortisone 1% Cream [Hytone 1% Cream -] 1 applic TP DAILY #1 tube 05/13/17 Levofloxacin [Levaquin -] 500 mg PO DAILY #7 tablet 05/13/17 Metronidazole [Flagyl -] 500 mg PO TID #21 tablet 05/13/17 - Discharge Referral Referred to [facility] No
[2017-05-13] MEDS: HEPARIN NA (PORCINE) 5,000 UNITS/ML 1ML VIAL SQ SCH (08:59)
[2017-05-13 11:32] VITALS: BP 127/59; PULSE 56; TEMP 98.1
== END 2017-05-13 09:22 | disposition home or self-care (01) | DRG 244 ==
LOC: JER 15:35 → JERBED 22:13 → UNDOADMIN 22:17 → JERBED 22:17 → J8W 05-06 02:00
PROVIDERS: ADMIT Internal Medicine; ATTEND Nurse Practitioner Acute Care
DX: K57.40 Diverticulitis of both small and large intestine with perforation and abscess without bleeding (principal); K65.1 Peritoneal abscess; F17.210 Nicotine dependence, cigarettes, uncomplicated; R11.2 Nausea with vomiting, unspecified; A08.8 Other specified intestinal infections; D72.828 Other elevated white blood cell count; E83.42 Hypomagnesemia; K57.90 Diverticulosis of intestine, part unspecified, without perforation or abscess without bleeding; S46.092S Other injury of muscle(s) and tendon(s) of the rotator cuff of left shoulder, sequela; X58.XXXS Exposure to other specified factors, sequela; Z91.030 Bee allergy status
CPT/HCPCS: 36415; 74177-TC; 80048; 80053; 81003; 81015; 83690; 83735; 84100; 85025; 87040; 87086; 99284-25; J1644; Q9967

== ENCOUNTER 2017-11-19 15:50 | Emergency (ER) | payer OTHER ==
--- NOTE | 2017-11-19 15:52 | PDOC ---
Rapid Medical Evaluation Time Seen by Provider: 11/19/17 15:52 Medical Evaluation: Allergies Allergy/AdvReac Type Severity Reaction Status Date / Time bee venom protein (honey bee) Allergy Verified 05/05/17 20:28 11/19/17 15:54 52 year old male with a history of diverticulitis and perforation, s/p sigmoidectomy, who presents with severe lower back pain after reaching down to hand picker mail and feeling a "pop." No relief from heat, cold, or Aleve. No lower extremity weakness or numbness, no change in bladder or bowel habits. No abdominal pain. V/s unremarkable. Surgical history Sigmoidectomy Left rotator cuff and bicep tear repair March 2017 Right knee ACL, LCL, MCL repair To FT for further evaluation.
[2017-11-19 16:02] VITALS: BP 138/88; PULSE 77; TEMP 97.8; BMI 27.4
--- NOTE | 2017-11-19 16:13 | PDOC ---
History of Present Illness - History of Present Illness Initial Comments: 11/19/17 16:40 The patient is a 52 year old male with PMHx of diverticulitis and perforation, s/p sigmoidectomy, who presents with back pain since last night. Patient states that around 5pm last night he was reaching to get the mail when he heard a pop and felt sharp muscle spasms in his lower back. Patient states that this pain reminds him of when he had crushed discs in the past after a missing a step while walking backwards off a small ledge. Patient states that he took Aleve last night, iced, heated and rested. He went to the store in the morning and noticed that his spasms had worsened so he took another Aleve. He states he is unable to ambulate without experiencing excruciating pain. He denies any bladder or bowel incontinence, denies numbness or tingling in the groin area, he denies any weakness or decreased sensation in his extremities. Surgical history: Sigmoidectomy Left rotator cuff and bicep tear repair March 2017 Right knee ACL, LCL, MCL repair <Lelo Alston - Last Filed: 11/19/17 18:00> <Annika Muniz - Last Filed: 11/19/17 18:27> - General Chief Complaint: Back Pain Stated Complaint: BACK PAIN Time Seen by Provider: 11/19/17 15:52 Past History <Lelo Alston - Last Filed: 11/19/17 18:00> - Past Medical History COPD: No GI Disorders: Yes (DIVERTICULITIS) - Surgical History Orthopedic Surgery: Yes (LEFT ROTATOR REPAIR 03/2017) - Immunization History Immunization Up to Date: Yes - Suicide/Smoking/Psychosocial Hx Smoking History: Current every day smoker Have you smoked in the past 12 months: Yes Number of Cigarettes Smoked Daily: 10 Information on smoking cessation initiated: Yes 'Breaking Loose' booklet given: 11/19/17 Hx Alcohol Use: No Drug/Substance Use Hx: No Substance Use Type: None <Annika Muniz - Last Filed: 11/19/17 18:27> - Past Medical History Allergies/Adverse Reactions: Allergies Allergy/AdvReac Type Severity Reaction Status Date / Time bee venom protein (honey bee) Allergy Verified 11/19/17 15:52 Home Medications: Ambulatory Orders Hydrocortisone 1% Cream [Hytone 1% Cream -] 1 applic TP DAILY #1 tube 05/13/17 levoFLOXacin [Levaquin -] 500 mg PO DAILY #7 tablet 05/13/17 metroNIDAZOLE [Flagyl -] 500 mg PO TID #21 tablet 05/13/17 Cyclobenzaprine HCl [Flexeril -] 10 mg PO HS #10 tablet 11/19/17 Ibuprofen 800 mg PO TID #30 tablet 11/19/17 Oxycodone HCl/Acetaminophen [Percocet 5-325 mg Tablet] 1 tab PO Q6H PRN #10 tablet MDD 4 11/19/17 Review of Systems - Review of Systems Comments:: ADULT ROS GENERAL/CONSTITUTIONAL: No fever or chills. No weakness. HEAD, EYES, EARS, NOSE AND THROAT: No change in vision. No ear pain or discharge. No sore throat. GASTROINTESTINAL: No nausea, vomiting, diarrhea or constipation. GENITOURINARY: No dysuria, frequency, or change in urination. CARDIOVASCULAR: No chest pain or shortness of breath. RESPIRATORY: No cough, wheezing, or hemoptysis. MUSCULOSKELETAL: No joint pain. No neck pain. + intractable back pain/spasms. SKIN: No rash NEUROLOGIC: No headache, vertigo, loss of consciousness, or change in strength/ sensation. ENDOCRINE: No increased thirst. No abnormal weight change. HEMATOLOGIC/LYMPHATIC: No anemia, easy bleeding, or history of blood clots. ALLERGIC/IMMUNOLOGIC: No hives or skin allergy. <Lelo Alston - Last Filed: 11/19/17 18:00> *Physical Exam - Vital Signs Last Vital Signs Temp Pulse Resp BP Pulse Ox 97.8 F 77 18 138/88 100 11/19/17 15:53 11/19/17 15:53 11/19/17 15:53 11/19/17 15:53 11/19/17 15:53 - Physical Exam Comments: 11/19/17 16:44 GENERAL: Awake, alert, and fully oriented. HEAD: No signs of trauma NECK: Normal ROM, supple, no lymphadenopathy, JVD, or masses ABDOMEN: Soft, nontender, normoactive bowel sounds. No guarding, no rebound. No masses BACK: Large palpable knot to left L1-L4. No CVA tenderness No paraspinal tenderness appreciated. EXTREMITIES: Normal range of motion, no edema. No clubbing or cyanosis. No cords, erythema, or tenderness NEUROLOGICAL: Strength 5/5 bilaterally.Cranial nerves II through XII grossly intact. Normal speech,difficulty ambulating secondary to pain. SKIN: Warm, Dry, normal turgor, no rashes or lesions noted. <Lelo Alston - Last Filed: 11/19/17 18:00> - Vital Signs Last Vital Signs Temp Pulse Resp BP Pulse Ox 97.8 F 77 18 138/88 100 11/19/17 15:53 11/19/17 15:53 11/19/17 15:53 11/19/17 15:53 11/19/17 15:53 <Annika Muniz - Last Filed: 11/19/17 18:27> ED Treatment Course - Medications Given in the ED: ED Medications Discontinued Medications Generic Name Dose Route Start Last Admin Trade Name Freq PRN Reason Stop Dose Admin Cyclobenzaprine HCl 10 mg 11/19/17 16:30 11/19/17 16:39 Flexeril - PO 11/19/17 16:31 10 mg ONCE ONE Administration Ketorolac Tromethamine 60 mg 11/19/17 16:30 11/19/17 16:39 Toradol Injection - IM 11/19/17 16:31 60 mg ONCE ONE Administration <Lelo Alston - Last Filed: 11/19/17 18:00> Medical Decision Making - Medical Decision Making 11/19/17 18:13 A portion of this note was documented by scribe services under my direction. I have reviewed the details of the note, within reason, and agree with the documentation with the following case summary and management plan written by me. Patient is a 52-year-old male past medical history of diverticulitis status post sigmoidectomy, who presents to the emergency department today with left lower back pain after reaching over to grab the mail. Neuro exam is normal, no red flags on history. Most likely a muscle spasm. Urine was obtained to rule out kidney stone. No blood seen. Wet read of X-ray shows decreased disc height in. Patient reports relief and back pain after Toradol, Flexeril and Percocet. We'll discharge home at this time. Return precautions given. Or the referral given. Patient understands all discharge instructions and all questions were answered. <Annika Muniz - Last Filed: 11/19/17 18:27> *DC/Admit/Observation/Transfer - Attestations Scribe Attestion: 11/19/17 16:47 Documentation prepared by Lelo Alston, acting as medical transport specialist for CristyAnnika CAMPOS <Lelo Alston - Last Filed: 11/19/17 18:00> - Discharge Dispostion Admit: No <CristyNaeAnnika - Last Filed: 11/19/17 18:27> Diagnosis at time of Disposition: Low back pain Qualifiers: Chronicity: acute Back pain laterality: left Sciatica presence: without sciatica Qualified Code(s): M54.5 - Low back pain - Discharge Dispostion Disposition: HOME Condition at time of disposition: Stable - Referrals Referrals: Pablo Em MD [Staff Physician] - - Patient Instructions Printed Discharge Instructions: DI for Low Back Pain Additional Instructions: You have low back pain due to a muscle spasm. Please take ibuprofen 800 mg 3 times a day not to exceed 3000 mg a day. You were also prescribed Flexeril. Please take this medication every 8 hours for the first day. Then take the medication before you go to bed. Do not drive after taking this medication as it may make you sleepy. You may use warm compresses on your back to help with her symptoms. Please follow-up with your primary care doctor. If your symptoms do not resolve in 3-5 days, follow-up with orthopedics. A referral has been provided for you. You were also prescribed percocet. You may take this medication every 6 hours as needed for break through pain. Do not drive after taking this medication as it may make you sleepy. Return to the emergency department if you have worsening back pain, bladder or bowel incontinence, numbness and tingling in her legs, changes in the way you walk, or any new or worsening symptoms. - Post Discharge Activity
[2017-11-19] MEDS ORDERED: KETOROLAC TROMETHAMINE 60 MG/2 ML VIAL IM ONE (16:30)
[2017-11-19] MEDS ORDERED: CYCLOBENZAPRINE HCL 10 MG TABLET (FP) PO ONE (16:30)
[2017-11-19] MEDS ORDERED: KETOROLAC TROMETHAMINE 60 MG/2 ML VIAL ONE (16:31)
[2017-11-19] MEDS ORDERED: CYCLOBENZAPRINE HCL 10 MG TABLET (FP) ONE (16:31)
[2017-11-19 17:16] LABS: URINE APPEARANCE SLCLOUDY; URINE BILIRUBIN NEGATIVE (NEGATIVE); URINE BLOOD NEGATIVE (NEGATIVE); URINE COLOR YELLOW; URINE GLUCOSE (UA) NEGATIVE (NEGATIVE); URINE KETONE NEGATIVE (NEGATIVE); URINE LEUK ESTERASE NEGATIVE (NEGATIVE); URINE NITRITE NEGATIVE (NEGATIVE); URINE PROTEIN NEGATIVE (NEGATIVE); URINE UROBILINOGEN NEGATIVE mg/dL (0.2-1.0)
== END 2017-11-19 18:37 | disposition home or self-care (01) ==
LOC: JERFT 15:50
PROC: 3E0233Z Introduction of Anti-inflammatory into Muscle, Percutaneous Approach (ICD-10-PCS; principal; 2017-11-19)
DX: M54.5 Low back pain (principal); X50.0XXA Overexertion from strenuous movement or load, initial encounter; Y93.89 Activity, other specified; Y92.038 Other place in apartment as the place of occurrence of the external cause; Y99.8 Other external cause status
CPT/HCPCS: 72100-TC-FY; 81003; 96372; 99281-25

== ENCOUNTER 2017-11-21 10:25 | Observation (INO) | payer OTHER ==
--- NOTE | 2017-11-21 10:37 | PDOC ---
History of Present Illness - General Chief Complaint: Back Pain Stated Complaint: REVISIT/ BACK PAIN Time Seen by Provider: 11/21/17 10:33 - History of Present Illness Initial Comments: 11/21/17 10:38 52 yo M with h/o diverticulosis , perforated diverticuli, who presents with intractable back pain. Patient reports exaccebration of lower back pain this AM with immobility 2/2 pain. Initially injured back Saturday by leaning over to grab paper. Reports that he experienced sudden onset lower back pain while standing (06/18) this AM and slight left gluteal radiation, worsened with movement/position change. Endorses SOB (now resolved) and spasms of back musculature. Denies N/V, F/C, wt. loss, sensory disturbance of ext., weakness, urinary incontinence, urinary retention, perianal/saddle parasthesia, flank pain. Last BM Saturday. Denies cough, abdominal pain, urinary complaints, lightheadedness. Recently evaluated in [facility] for back pain lower back pain (), with R lateral spondylosis and loss of disc space ht. L4-S1,on Lumbar RAD and was treated with Flexeril, Perocet, and Toradol. Denies h/o IVDA. Past History - Past Medical History Allergies/Adverse Reactions: Allergies Allergy/AdvReac Type Severity Reaction Status Date / Time bee venom protein (honey bee) Allergy Verified 11/19/17 15:52 Home Medications: Ambulatory Orders Cyclobenzaprine HCl [Flexeril -] 10 mg PO HS #10 tablet 11/19/17 Ibuprofen 800 mg PO TID #30 tablet 11/19/17 Oxycodone HCl/Acetaminophen [Percocet 5-325 mg Tablet] 1 tab PO Q6H PRN #10 tablet MDD 4 11/19/17 CVA: No COPD: No GI Disorders: Yes (DIVERTICULITIS) - Surgical History Abdominal Surgery: Yes Orthopedic Surgery: Yes (LEFT ROTATOR REPAIR 03/2017) - Immunization History Immunization Up to Date: Yes - Suicide/Smoking/Psychosocial Hx Smoking History: Current every day smoker Have you smoked in the past 12 months: Yes Number of Cigarettes Smoked Daily: 10 Information on smoking cessation initiated: No 'Breaking Loose' booklet given: 11/19/17 Hx Alcohol Use: No Drug/Substance Use Hx: Yes Substance Use Type: Alcohol, Marijuana Review of Systems - Review of Systems Comments:: 11/21/17 10:36 GENERAL/CONSTITUTIONAL: No fever or chills. No weakness. HEAD, EYES, EARS, NOSE AND THROAT: No change in vision. No ear pain or discharge. No sore throat. CARDIOVASCULAR: No chest pain or shortness of breath RESPIRATORY: No cough, wheezing, or hemoptysis. GASTROINTESTINAL: No nausea, vomiting, diarrhea or constipation. GENITOURINARY: No dysuria, frequency, or change in urination. MUSCULOSKELETAL: + Back pain. SKIN: No rash NEUROLOGIC: No headache, vertigo, loss of consciousness, or change in strength/ sensation. ENDOCRINE: No increased thirst. No abnormal weight change HEMATOLOGIC/LYMPHATIC: No anemia, easy bleeding, or history of blood clots. ALLERGIC/IMMUNOLOGIC: No hives or skin allergy. *Physical Exam - Vital Signs Last Vital Signs Temp Pulse Resp BP Pulse Ox 98.2 F 92 H 24 153/87 97 11/21/17 10:28 11/21/17 10:28 11/21/17 10:28 11/21/17 10:28 11/21/17 10:28 - Physical Exam Comments: 11/21/17 10:36 GENERAL: Awake, alert, and fully oriented, in no acute distress HEAD: No signs of trauma, normocephalic, atraumatic EYES: PERRLA, EOMI, sclera anicteric, conjunctiva clear ENT: Auricles normal inspection, hearing grossly normal, nares patent, oropharynx clear without exudates. Moist mucosa NECK: Normal ROM, supple, no lymphadenopathy, JVD, or masses LUNGS: No distress, speaks full sentences, clear to auscultation bilaterally HEART: Regular rate and rhythm, normal S1 and S2, no murmurs, rubs or gallops, peripheral pulses normal and equal bilaterally. ABDOMEN: Soft, nontender, normoactive bowel sounds. No guarding, no rebound. No masses. Rectal tone normal and perianal sensation intact. EXTREMITIES : Normal inspection, Normal range of motion, no edema. No clubbing or cyanosis. Back: Absent spinal or paraspinal ttp. Absent back fluctuance or overlying skin changes. NEUROLOGICAL: Cranial nerves II through XII grossly intact. Normal speech, normal gait, no focal sensorimotor deficits SKIN: Warm, Dry, normal turgor, no rashes or lesions noted Medical Decision Making - Medical Decision Making 11/21/17 11:30 52 yo M with h/o diverticulosis , perforated diverticuli, who presents with worsening of lower back pain this AM with immobility 2/2 pain following atraumatic back injury Saturday. Aggravated w/ movement/position change. Endorses SOB (now resolved) and spasms of back musculature. Denies N/V, F/C, cough, abdominal pain, urinary complaints, lightheadedness, wt. loss, sensory disturbance of ext., weakness, urinary incontinence, urinary retention, perianal /saddle parasthesia, flank pain. Recently evaluated in [facility] for lower back pain (11/19/17), with R lateral spondylosis and loss of disc space ht. L4-S1,on Lumbar RAD. Pain refractory to Flexeril, Perocet, Ibuprofen.HDS, and physical exam with absent focal neuro deficits.Normal rectal tone. Low suspicion of cauda equina or conus medullaris as pt. denies urinary, bowel,or neuro symptoms. Absent alarm symptoms concerning for malignancy. Low suspicion of epidural abscess, or pyelonephritis. At this time urgent intervention not required. ED Course: 11/21/17 11:37 Dilaudid 4 mg PO Ativan 5 mg PO 11/21/17 13:23 Back pain not improved with medication. Endorses severe lower back pain. CBC, CMP, UA, EKG Morphine 4 mg IV, Zofran IVPB Will admit for intractable back pain/ obs. 11/21/17 13:50 Patient admitted to med/surg obs for intractable back pain. *DC/Admit/Observation/Transfer Diagnosis at time of Disposition: Intractable back pain - Discharge Dispostion Admit: Yes - Referrals - Patient Instructions Additional Instructions: Please return to the emergency department with any new or worsening symptoms or concerns. Please follow up with your primary care physician within 72 hours. - Post Discharge Activity - Attestations Physician Attestion: 11/21/17 10:37 I attest to the information provided in this note.
[2017-11-21] MEDS ORDERED: diazePAM 5 MG TABLET PO ONE (10:56)
[2017-11-21] MEDS ORDERED: HYDROmorphone HCL CARPU-JECT 1 MG/1 ML DISP.SYRIN IM ONE (10:56)
--- NOTE | 2017-11-21 11:12 | PDOC ---
Attending Attestation - HPI HPI: 11/21/17 11:12 The patient is a 52 year old male with a significant PMH of diverticulitis and perforation s/p sigmoidectomy who presents to the emergency department with worsening low back pain for the past three days. The patient was seen at our facility three days ago for this low back pain. The patient states he was reaching for his mailbox three days ago and has been experiencing sharp muscle spasms since. The patient reports severe, excruciating back pain when ambulating this morning with associated numbness prompting him to come to the ER for reevaluation. The patient describes this lower back pain as worse than when he had crushed discs in the past. The patient noticed the back pain was unbearable this morning with no alleviation after taking flexaril, oxycodone, and 800mg Ibruprofen. He denies any bladder or bowel incontinence, denies any weakness or decreased sensation in his extremities. The patient denies chest pain, shortness of breath, headache and dizziness. Denies fever, chills, nausea, vomit, diarrhea and constipation. Denies dysuria, frequency, urgency and hematuria. Allergies: NKA Past surgical history: Sigmoidectomy Left rotator cuff and bicep tear repair March 2017 Right knee ACL, LCL, MCL repair Social history: Current everyday smoker. No reported alcohol or drug use. - Physicial Exam PE: 11/21/17 11:12 Vitals: Triage vital signs reviewed General Appearance: No acute distress, well nourished, well developed Head: Atraumatic Eyes: Pupils equal reactive round, extraocular movement intact Cardiac: Regular rate and rhythm, no murmurs, no rubs, no gallops Lungs: Clear to auscultation bilateral, good air movement bilaterally Abdomen: Soft, nondistended, normal bowel sounds, nontender to palpation Extremities: (+) Right leg pain with movement. No cyanosis, clubbing, or edema Skin: Warm and dry, no rashes or lesions, no rash, no petechiae Neuro: AOX3; Cranial Nerves 2-12 grossly intact, Strength intact to all extremities, Sensation intact to all extremities Psych: Normal mood, normal affect <Sidra Escobedo - Last Filed: 11/21/17 11:17> - Resident Resident Name: Bob Real - ED Attending Attestation I have performed the following: The case was reviewed & discussed with the resident - Medical Decision Making 11/21/17 17:43 52 years old with history of back discomfort seen in emergency department Ginger initially pain controlled, with now intractable back pain. No weakness no numbness on examination good rectal tone the patient is in such pain he cannot transfer from stretcher to bed Differential diagnosis includes muscle spasm versus underlying disc disease We'll treat with Dilaudid Valium and reassess Reevaluation patient still in moderate to severe discomfort unable to transfer IV medications ordered at this point we will admit to hospital for MRI lumbar spine, IV pain medications pain consultation and orthopedic consultation if necessary <Kostas Rose - Last Filed: 11/21/17 17:43> Heart Score/ECG Review - ECG Impressions Comment:: 11/21/17 17:43 EKG performed at 1545 demonstrates a rate of 58 bpm sinus rhythm no ST elevations or T-wave inversions interpreted by me <Kostas Rose - Last Filed: 11/21/17 17:43>
[2017-11-21] MEDS ORDERED: HYDROmorphone HCL 2 MG TABLET ONE ×2 (11:37→12:06)
[2017-11-21] MEDS ORDERED: diazePAM 5 MG TABLET ONE (11:38)
[2017-11-21] MEDS ORDERED: ONDANSETRON 4 MG/2 ML VIAL IVPUSH ONE (13:23)
[2017-11-21] MEDS ORDERED: SODIUM CHLORIDE 1,000 ML IV STA (13:23)
[2017-11-21] MEDS ORDERED: morphine CARPU-JECT 4 MG/1 ML DISP.SYRIN IVPUSH ONE ×2 (13:23→13:26)
[2017-11-21] MEDS ORDERED: ACETAMINOPHEN 1000 MG/100 ML VIAL (NON FORMULARY) IVPB ONE (13:26)
[2017-11-21] MEDS ORDERED: ONDANSETRON 4 MG/2 ML VIAL ONE (13:58)
[2017-11-21] MEDS ORDERED: morphine SULFATE 4 MG/ML VIAL ONE (13:58)
[2017-11-21] MEDS ORDERED: ACETAMINOPHEN INJECTION 100 ML IVPB ONE (13:58)
[2017-11-21 14:12] LABS: BASO % 0.4 % (0-2.0); EOS % 2.4 % (0-4.5); HEMATOCRIT 42.6 % (35.4-49); HEMOGLOBIN 14.2 GM/dL (11.7-16.9); LYMPH % 30.4 % (8-40); MCH 30.4 pg (25.7-33.7); MCHC 33.3 g/dl (32.0-35.9); MEAN CELL VOLUME 91.3 fl (80-96); MEAN PLT VOLUME 7.9 fl (7.5-11.1); MONO % 4.8 % (3.8-10.2); PLATELET COUNT 207 K/MM3 (134-434); RBC 4.66 M/mm3 (4.00-5.60); RDW 13.4 % (11.9-15.9); WHITE BLOOD COUNT 9.1 K/mm3 (4.0-10.0)
[2017-11-21] MEDS ORDERED: ACETAMINOPHEN 325 MG TABLET (FP) PO PRN (14:16)
[2017-11-21] MEDS ORDERED: MORPHINE SULFATE 10 MG/1 ML *VIAL IVPUSH PRN (14:16)
--- NOTE | 2017-11-21 14:20 | HP ---
CHIEF COMPLAINT: "I have the worst back pain of my life" Past art specialist Dr Reyna HISTORY OF PRESENT ILLNESS: This is a 52 yo M with PMH of lumbar pain due to compression fractures treated with epidural 10 yrs ago (resolved) and diverticulosis s/p colectomy due to perforated diverticuli, who presents with intractable back pain. Patient initially visited ed 11/19 for the back pain that was caused by bending over uncomfortably, accompanied by popping sound. he states that the percocet, nsaids and flexeril with warm/cool compress did not help him at home and his pain is now worse 06/18. It it localized over L lumbar perispinal muscles with slight radiation to L glut w/o any neurological deficits. pain is sharp and spasmic in nature. it is relieved by certain lying positions (slept well at night) and aggravated by bending over and moving. Pain is urnelieved by JOVON mabry. he reports severe restriction in walkin g due to pain. Denies prior back trauma, f/c, n/v, h/a, loss of urinary of bowel function. ER course was notable for: (1)labs (2)ivf, dilaudid (3) Recent Travel: denies PAST MEDICAL HISTORY: as above PAST SURGICAL HISTORY: L shoulder, R knee surgery, Lumbar epidurals, colectomy Social History: lives at home Smoking: half a pack/day x 20 yrs Alcohol: denies Drugs: denies Family History: noncontributory Allergies bee venom protein (honey bee) Allergy (Verified 11/19/17 15:52) HOME MEDICATIONS: Home Medications Medication Instructions Recorded Cyclobenzaprine HCl [Flexeril -] 10 mg PO HS #10 tablet 11/19/17 Ibuprofen 800 mg PO TID #30 tablet 11/19/17 Oxycodone HCl/Acetaminophen 1 tab PO Q6H PRN #10 tablet MDD 4 11/19/17 [Percocet 5-325 mg Tablet] REVIEW OF SYSTEMS CONSTITUTIONAL: Absent: fever, chills HEENT: Absent: rhinorrhea, nasal congestion, throat pain CARDIOVASCULAR: Absent: chest pain, syncope, palpitations RESPIRATORY: Absent: cough, shortness of breath GASTROINTESTINAL: Absent: abdominal pain, abdominal distension, nausea, vomiting, diarrhea, constipation, melena, hematochezia GENITOURINARY: Absent: dysuria MUSCULOSKELETAL: Absent: myalgia, arthralgia, joint swelling SKIN: Absent: rash, itching, pallor HEMATOLOGIC/IMMUNOLOGIC: Absent: easy bleeding, easy bruising ENDOCRINE: Absent: unexplained weight gain, unexplained weight loss, heat intolerance, cold intolerance NEUROLOGIC: Absent: headache, focal weakness or paresthesias, dizziness, seizure, bladder or bowel incontinence PSYCHIATRIC: Absent: anxiety, depression PHYSICAL EXAMINATION Vital Signs - 24 hr 11/21/17 10:28 Temperature 98.2 F Pulse Rate 92 H Respiratory 24 Rate Blood Pressure 153/87 O2 Sat by Pulse 97 Oximetry (%) GENERAL: Awake, alert, and fully oriented, in no acute distress. HEAD: Normal with no signs of trauma. EYES: Pupils equal, round and reactive to light, extraocular movements intact, sclera anicteric, conjunctiva clear. No lid lag. EARS, NOSE, THROAT: Moist mucous membranes. NECK: supple LUNGS: Breath sounds equal, clear to auscultation bilaterally. HEART: Regular rate and rhythm, normal S1 and S2 ABDOMEN: Soft, nontender, not distended, normoactive bowel sounds MUSCULOSKELETAL: No CVA tenderness, no paraspinal tenderness . UPPER EXTREMITIES: 2+ pulses, warm, well-perfused. No cyanosis. No clubbing. No peripheral edema. LOWER EXTREMITIES: 2+ pulses, warm, well-perfused. No calf tenderness. No peripheral edema. NEUROLOGICAL: Cranial nerves II-XII intact. strenght 5/5 in all extremities, sensation intact, rectal tone intact per ER note. Normal speech. PSYCHIATRIC: Cooperative. Good eye contact. Appropriate mood and affect. SKIN: Warm, dry ASSESSMENT/PLAN: This is a 52 yo M with PMH of lumbar pain due to compression fractures treated with epidural 10 yrs ago (resolved) and diverticulosis s/p colectomy due to perforated diverticuli, who presents with intractable back pain. intractable back pain -likely due to muscle spasm -r/o structural lumbar problems; lumbar MRI w/o contrast -spinal x ray chronic compression injuries -IV valium prn for spasm, iv morphine prn, po tylenol -PT -Dr [place] consult -NS @ 100 FEN -IVF -f/u labs -regular diet -colace for constipation once -teds -obs m/s Problem List - Problem (1) Intractable back pain Code(s): M54.9 - DORSALGIA, UNSPECIFIED (2) Low back pain Code(s): M54.5 - LOW BACK PAIN Qualifiers: Chronicity: acute Back pain laterality: left Sciatica presence: without sciatica Qualified Code(s): M54.5 - Low back pain Visit type - Emergency Visit Emergency Visit: Yes ED Registration Date: 11/21/17 Care time: The patient presented to the Emergency Department on the above date and was hospitalized for further evaluation of their emergent condition. - New Patient This patient is new to me today: Yes Date on this admission: 11/21/17 - Critical Care Critical Care patient: No Hospitalist Screening - Colonoscopy Questionnaire Colonoscopy Questionnaire: Colonoscopy Questionnaire - Patient: 50 - 75 years old and never had a screening colonoscopy: Yes History of colon or rectal polyps, or CA: No History of IBD, Crohn's disease or UC: No History of abdominal radiation therapy as a child: No - Relative: 1 with colon or rectal CA, or polyps at age 60 or younger: No Colon or rectal CA diagnosed at age 45 or younger: No Multiple relatives with colon or rectal CA: No - Outcome: Screening Result: Positive Screen
[2017-11-21 14:34] LABS: ALBUMIN 3.7 g/dl (3.4-5.0); ALK PHOS 89 U/L (45-117); ANION GAP 11 (8-16); BILIRUBIN,TOTAL 0.3 mg/dL (0.2-1.0); BLOOD UREA NITROGEN 18 mg/dL (7-18); CALCIUM 8.9 mg/dL (8.5-10.1); CHLORIDE 104 mmol/L (98-107); CO2 25 mmol/L (21-32); CREATININE 0.8 mg/dL (0.7-1.3); GLUCOSE,RANDOM 91 mg/dL (74-106); POTASSIUM 4.4 mmol/L (3.5-5.1); SGOT/AST 15 U/L (15-37); SGPT/ALT 17 U/L (12-78); SODIUM 140 mmol/L (136-145); TOT PROT 7.2 g/dl (6.4-8.2)
[2017-11-21] MEDS: SODIUM CHLORIDE 1,000 ML IV SCH (14:46)
[2017-11-21] MEDS ORDERED: DOCUSATE SODIUM 100 MG CAPSULE (FP) PO ONE ×2 (15:00→21:25)
[2017-11-21] MEDS ORDERED: diazePAM CARPU-JECT 10 MG/2 ML DISP.SYRIN IVPUSH PRN (15:16)
[2017-11-21 18:08] VITALS: BMI 28.2
--- NOTE | 2017-11-21 19:50 | PN ---
Teaching Attending Note Name of Resident: Shakila Coleman ATTENDING PHYSICIAN STATEMENT I saw and evaluated the patient. I reviewed the resident's note and discussed the case with the resident. I agree with the resident's findings and plan as documented. SUBJECTIVE: This is a 52 year old man with a history of lumbar compression fractures, diverticulosis, perforated diverticulitis, sigmoid resection who comes to the ED complaining of back pain. He had been seen in the ED on 11/19 for back pain which was thought to be secondary to muscle spasm. He was discharged and prescribed ibuprofen and Flexeril. Pain is worse with activity and he is having difficulty ambulating. OBJECTIVE: Vital Signs Period Temp Pulse Resp BP Sys/Hou Pulse Ox Last 24 Hr 98.1 F-98.2 F 78-92 18-24 121-153/65-87 97-98 HEART: S1S2, RRR LUNGS: Clear ABDOMEN: Soft, non-tender, non-distended, normal BS EXTREMITIES: No edema BACK: No spinal or paraspinal tenderness ASSESSMENT AND PLAN: This is a 52 year old man with a history of lumbar compression fractures, diverticulosis, perforated diverticulitis, sigmoid resection who presented to the ED for the second time in 3 days for back pain. 1. Intractable back pain with difficulty ambulating - Continue muscle relaxant, NSAIDs, morphine as needed - MRI of lumbar spine - Physical therapy - Ortho consult
[2017-11-21] MEDS: SENNOSIDES 8.6MG TABLET (FP) PO SCH (21:51)
[2017-11-21] MEDS: morphine SULFATE 4 MG/ML VIAL IVPUSH PRN (21:52)
[2017-11-22] MEDS: SODIUM CHLORIDE 1,000 ML IV SCH ×3 (01:00→17:47)
[2017-11-22] MEDS: morphine SULFATE 4 MG/ML VIAL IVPUSH PRN (02:00)
[2017-11-22] MEDS ORDERED: diazePAM 5 MG TABLET PO ONE (06:23)
[2017-11-22] MEDS: KETOROLAC TROMETHAMINE 30 MG/1 ML VIAL IVPUSH SCH ×2 (09:09→18:19)
[2017-11-22] MEDS: PANTOPRAZOLE 40 MG TABLET (FP) PO SCH (09:09)
--- NOTE | 2017-11-22 10:42 | EKG ---
Test Reason : Blood Pressure : / mmHG Vent. Rate : 058 BPM Atrial Rate : 058 BPM P-R Int : 182 ms QRS Dur : 092 ms QT Int : 406 ms P-R-T Axes : 039 001 014 degrees QTc Int : 398 ms SINUS BRADYCARDIA NO PREVIOUS ECGS AVAILABLE Confirmed by ARTIS RAZA MD ([id number]) on 11/22/2017 10:42:02 AM Referred By: Confirmed By:ARTIS RAZA MD
--- NOTE | 2017-11-22 17:12 | CONSULT ---
Consult - text type - Consultation Consultation Note: Asked to eval this 52M admitted for intractable low back pain. States pain was the worst of his life. Has some tingling down the legs but mostly low back pain. Has a history of disc herniations. He is scheduled for MRI exam later tonight. States feeling better after pain meds. Denies bowel/bladder symptoms. PMH: lumbar compression fractures/diverticulosis s/p colectomy Meds: reviewed in chart All: bee venom FH: n/c SH: 1/2 PPD x 20 years/denies etoh/ivda ROS: no recent fevers/chill/weight loss PE: Afeb, VSS awake/alert/oriented x 3 sitting up in bed, appears comfortable b/l UE FROM without pain B/L motor intact distal pulses 2+ bilaterally, no peripheral edema Straight leg raising exam negative bilaterally PROM of hips pain free Xrays: Spondylitic changes L4-S1 Imp: Intractable low back pain, no severe radiculopathy, no clinical signs of cauda equina syndrome -agree with MRI - will follow results -pain control - consider pain management consult -oob/PT -likely dispo when pain under better control -there does not appear to be indication for emergent surgical interevntion but will follow MRI results
--- NOTE | 2017-11-22 17:59 | PN ---
Teaching Attending Note Name of Resident: Minnie Do ATTENDING PHYSICIAN STATEMENT I saw and evaluated the patient. I reviewed the resident's note and discussed the case with the resident. I agree with the resident's findings and plan as documented with exceptions mentioned below. SUBJECTIVE: Patient seen and examined, reports overall unchanged left lower back pain, no urinary symptoms, Has been constipated. Bilateral leg tingling intermittent but no numbness or weakness noted. OBJECTIVE: Vital Signs Period Temp Pulse Resp BP Sys/Hou Pulse Ox Last 24 Hr 97.3 F-98.5 F 55-66 20-20 110-144/65-83 98-98 Intake & Output 11/19/17 11/20/17 11/21/17 11/22/17 23:59 23:59 23:59 23:59 Intake Total 600 1900 Output Total 1100 Balance 600 800 Weight 208 lb General: sitting in bed in no acute distress Musculoskeletal/SPine: no spinal tenderness, Left lumbar spasmodic area but no palpable tenderness noted, SLR neg bilaterally, sensation intact to light touch , power 5/5, toes down going. Active Medications Generic Name Dose Route Start Last Admin Trade Name Freq PRN Reason Stop Dose Admin Acetaminophen 650 mg 11/21/17 14:16 Tylenol - PO Q4H PRN PAIN LEVEL 1-5 Diazepam 5 mg 11/22/17 17:34 Valium - PO Q8H PRN WITHDRAWAL(CONT SUBST) Sodium Chloride 1,000 mls @ 100 mls/hr 11/21/17 14:30 11/22/17 17:47 Normal Saline - IV Not Given ASDIR ARIANA Ketorolac Tromethamine 30 mg 11/22/17 10:00 11/22/17 09:09 Toradol Injection - IVPUSH 11/27/17 09:59 30 mg Q8H-IV ARIANA Administration Morphine Sulfate 4 mg 11/21/17 17:48 11/22/17 02:00 Morphine Sulfate IVPUSH 4 mg Q4H PRN Administration PAIN LEVEL 6-10 Pantoprazole Sodium 40 mg 11/22/17 10:00 11/22/17 09:09 Protonix - PO 40 mg DAILY ARIANA Administration Senna 1 tab 11/21/17 22:00 11/21/17 21:51 Senna - PO 1 tab HS ARIANA Administration Lumbar xray from recent ED visit reviewed ASSESSMENT AND PLAN: 52 yom with acute on chronic Left lower back pain. -Acute left lower back pain with lumbar spasm Plan: Morphine/toradol. add valium prn. neuro checks. MRI L -spine. Spine input appreciated, follow up for additional recs. PT eval dispo planning pending MRI results and spine input Plan discussed with patient in detail, all questions answered.
[2017-11-22] MEDS: diazePAM 5 MG TABLET PO PRN (18:18)
--- NOTE | 2017-11-22 19:05 | PN ---
Physical Exam: SUBJECTIVE: Patient seen and examined in AM. Continues to have pain and difficulty ambulating. Offers no other complaints. OBJECTIVE: Vital Signs Period Temp Pulse Resp BP Sys/Hou Pulse Ox Last 24 Hr 97.4 F-98.5 F 55-66 20-20 110-144/65-83 98-98 GENERAL: sitting in bed, nad, aaox3 HEENT: sclera anicteric, conjunctiva clear, MMM LUNGS: CTAB HEART: rrr, normal s1/s2 ABDOMEN: Soft, NTND LOWER EXTREMITIES: 2+ DP pulses, wwp, no edema MSK: No paraspinal tenderness Active Medications Acetaminophen (Tylenol -) 650 mg PO Q4H PRN PRN Reason: PAIN LEVEL 1-5 Diazepam (Valium -) 5 mg PO Q8H PRN PRN Reason: WITHDRAWAL(CONT SUBST) Last Admin: 11/22/17 18:18 Dose: 5 mg Sodium Chloride (Normal Saline -) 1,000 mls @ 100 mls/hr IV ASDIR [facility] Last Admin: 11/22/17 17:47 Dose: Not Given Ketorolac Tromethamine (Toradol Injection -) 30 mg IVPUSH Q8H-IV ARIANA Stop: 11/27/17 09:59 Last Admin: 11/22/17 18:19 Dose: 30 mg Morphine Sulfate (Morphine Sulfate) 4 mg IVPUSH Q4H PRN PRN Reason: PAIN LEVEL 6-10 Last Admin: 11/22/17 02:00 Dose: 4 mg Pantoprazole Sodium (Protonix -) 40 mg PO DAILY [facility] Last Admin: 11/22/17 09:09 Dose: 40 mg Senna (Senna -) 1 tab PO HS [facility] Last Admin: 11/21/17 21:51 Dose: 1 tab ASSESSMENT/PLAN: 52yo M with PMH of lumbar compression fractures, diverticulosis, perforated diverticulitis s/p colectomy who presents to ED with intractable back pain. #acute on chronic back pain, likely 2/2 to muscle spasm -f/u MRI spine -Ortho consult -Valium 5mg PO Q8H, Morphine 4mg IV Q4H PRN, Toradol 30mg IV Q8H -Tylenol 650mg PO Q4H PRN -PT eval #FEN: NS@100 / monitor lyte / Regular diet #PPX TEDs #DISPO: obs, d/c planning after MRI results d/w Dr. Mateo Do MD PGY1 - Internal Medicine Visit type - Emergency Visit Emergency Visit: No - New Patient This patient is new to me today: Yes Date on this admission: 11/22/17 - Critical Care Critical Care patient: No
[2017-11-22] MEDS: SENNOSIDES 8.6MG TABLET (FP) PO SCH (21:26)
[2017-11-23] MEDS: KETOROLAC TROMETHAMINE 30 MG/1 ML VIAL IVPUSH SCH ×3 (02:36→17:34)
[2017-11-23] MEDS: diazePAM 5 MG TABLET PO PRN ×2 (09:11→17:34)
[2017-11-23] MEDS: PANTOPRAZOLE 40 MG TABLET (FP) PO SCH (09:11)
--- NOTE | 2017-11-23 09:50 | PN ---
Progress Note (short form) - Note Progress Note: NEUROSURGERY CONSULT DICTATED H/o degenerative disc disease treated with epidural 10 yrs ago, diverticulosis s /p colectomy, recent L shoulder surgery, presents with intractable back pain. In Ed 4 days ago for back pain that was caused by bending/reaching to mailbox. Percocet, NSAIDS and flexeril with warm/cool compress did not help him. Pain 10/ 10. Pain over L lumbar paraspinal muscles with radiation to L buttocks w/o weakness or numbness. Denies recent back trauma, loss of urinary of bowel function. PE: AF, VSS General- unremarkable, L shoulder, R knee, abdominal incisions CN- intact; Motor-5/5 except pain limited; Sensation- decreased LT/PP R lateral knee and L L3-4; DTR- hyporeflexic; Back - L paraspinal muscle spasm > R, negative SLR B to 50 degrees LS spine x-rays: spondylosis, reversal of lordosis, bridging osteophytes worst L3-4 MRI LS spine- multlevel DDD L2-3 to L5-S1; L L2-3 lateral recess/foramenal disc protrusion with foramenal stenosis, small disc bulge L L3-4 and L L4-5 with mild stenosis; R L5-S1 paracentral disc protrusion IV steroid for today, transition to medrol dose pack upon discharge Pt encouraged to get a local pain management physician PT outpatient Surgery would be considered if progressive neurological deficits
[2017-11-23] MEDS: DEXAMETHASONE SOD PHOSPHATE 4 MG/1 ML VIAL IVPUSH SCH ×3 (11:12→21:28)
[2017-11-23] MEDS: DOCUSATE SODIUM 100 MG CAPSULE (FP) PO SCH (11:13)
[2017-11-23] MEDS: POLYETHYLENE GLYCOL 3350 119 GM BTL PO SCH ×2 (11:13→21:30)
--- NOTE | 2017-11-23 11:39 | PN ---
Teaching Attending Note Name of Resident: Minnie Do ATTENDING PHYSICIAN STATEMENT I saw and evaluated the patient. I reviewed the resident's note and discussed the case with the resident. I agree with the resident's findings and plan as documented with exceptions below. SUBJECTIVE: Patient seen and examined. Back pain with some improvement, walking to bathroom , no new weakness/tingling or numbness noted. OBJECTIVE: Vital Signs Period Temp Pulse Resp BP Sys/Hou Pulse Ox Last 24 Hr 97.4 F-98.5 F 60-68 20-68 123-132/75-89 98-98 Intake & Output 11/20/17 11/21/17 11/22/17 11/23/17 23:59 23:59 23:59 23:59 Intake Total 600 1900 1400 Output Total 1700 800 Balance 600 200 600 Weight 208 lb General: sitting in bed in no acute distress Musculoskeletal: left lumbar spasm improved from yesterday, no spinal tenderness , LE power 5/5, sensation positive to light touch, SLR neg bilaterally Active Medications Generic Name Dose Route Start Last Admin Trade Name Freq PRN Reason Stop Dose Admin Acetaminophen 650 mg 11/21/17 14:16 Tylenol - PO Q4H PRN PAIN LEVEL 1-5 Dexamethasone Sodium Phosphate 4 mg 11/23/17 10:30 11/23/17 11:12 Decadron Injection - IVPUSH 4 mg Q6H-IV ARIANA Administration Diazepam 5 mg 11/22/17 17:34 11/23/17 09:11 Valium - PO 5 mg Q8H PRN Administration WITHDRAWAL(CONT SUBST) Docusate Sodium 100 mg 11/23/17 10:00 11/23/17 11:13 Colace - PO 100 mg DAILY ARI[facility] Administration Gabapentin 300 mg 11/23/17 14:00 Neurontin - PO TID ARIANA Sodium Chloride 1,000 mls @ 100 mls/hr 11/21/17 14:30 11/22/17 17:47 Normal Saline - IV Not Given ASDIR ARIANA Ketorolac Tromethamine 30 mg 11/22/17 10:00 11/23/17 09:11 Toradol Injection - IVPUSH 11/27/17 09:59 30 mg Q8H-IV ARIANA Administration Morphine Sulfate 4 mg 11/21/17 17:48 11/22/17 02:00 Morphine Sulfate IVPUSH 4 mg Q4H PRN Administration PAIN LEVEL 6-10 Pantoprazole Sodium 40 mg 11/22/17 10:00 11/23/17 09:11 Protonix - PO 40 mg DAILY ARI[facility] Administration Polyethylene Glycol 17 gm 11/23/17 10:00 11/23/17 11:13 Miralax (For Daily Use) - PO 17 gm BID ARI[facility] Administration Senna 1 tab 11/21/17 22:00 11/22/17 21:26 Senna - PO 1 tab HS ARIANA Administration MRI spine results reviewed ASSESSMENT AND PLAN: 52 yom with acute on chronic Left lower back pain. -Acute left lower back pain with lumbar spasm and lumbosacral disc hernation ( moderate to severe L2-L3) Plan: MRI spine results noted. Dr. Thomas's input appreciated. Decadron today, medrol dose pack tomorrow. No plans for surgical intervention, no neurlogical concerns. Morphine not helping, d/c. Toradol/valium/decadron today. PT eval dispo planning in 24 hours as improves pending PT eval. Plan discussed with patient in detail, all questions answered.
--- NOTE | 2017-11-23 12:07 | PN ---
Progress Note, Physician History of Present Illness: He is feeling better today. He is able to walk a little and his pain is well controlled. He was seen by neurosurgery - Current Medication List Current Medications: Active Medications Acetaminophen (Tylenol -) 650 mg PO Q4H PRN PRN Reason: PAIN LEVEL 1-5 Dexamethasone Sodium Phosphate (Decadron Injection -) 4 mg IVPUSH Q6H-IV [facility] Last Admin: 11/23/17 11:12 Dose: 4 mg Diazepam (Valium -) 5 mg PO Q8H PRN PRN Reason: WITHDRAWAL(CONT SUBST) Last Admin: 11/23/17 09:11 Dose: 5 mg Docusate Sodium (Colace -) 100 mg PO DAILY [facility] Last Admin: 11/23/17 11:13 Dose: 100 mg Gabapentin (Neurontin -) 300 mg PO TID [facility] Sodium Chloride (Normal Saline -) 1,000 mls @ 100 mls/hr IV ASDIR [facility] Last Admin: 11/22/17 17:47 Dose: Not Given Ketorolac Tromethamine (Toradol Injection -) 30 mg IVPUSH Q8H-IV [facility] Stop: 11/27/17 09:59 Last Admin: 11/23/17 09:11 Dose: 30 mg Morphine Sulfate (Morphine Sulfate) 4 mg IVPUSH Q4H PRN PRN Reason: PAIN LEVEL 6-10 Last Admin: 11/22/17 02:00 Dose: 4 mg Pantoprazole Sodium (Protonix -) 40 mg PO DAILY [facility] Last Admin: 11/23/17 09:11 Dose: 40 mg Polyethylene Glycol (Miralax (For Daily Use) -) 17 gm PO BID [facility] Last Admin: 11/23/17 11:13 Dose: 17 gm Senna (Senna -) 1 tab PO HS [facility] Last Admin: 11/22/17 21:26 Dose: 1 tab - Objective Vital Signs: Vital Signs Temperature 97.4 F L 11/23/17 06:00 Pulse Rate 66 11/23/17 06:00 Respiratory Rate 20 11/23/17 06:00 Blood Pressure 132/75 11/23/17 06:00 O2 Sat by Pulse Oximetry (%) 98 11/23/17 06:00 Constitutional: Yes: Well Nourished, No Distress, Calm HENT: Yes: Atraumatic, Normocephalic Musculoskeletal: Yes: Other (No erythema, edema or echhymosis of lower extremities. Full ROM of hips, knee, ankles. No calf tenderness. Compartments soft. Negative straight leg test bilaterally.) Labs: CBC, BMP 11/21/17 14:00 11/21/17 13:45 - ....Imaging MRI: Report Reviewed, Image Reviewed (Moderate-Large L2-L3 left disc herniation , DD L2-S1) Assessment/Plan #1 Lower back pain -Discussed MRI findings with patient. Dr. Jackson reviewed findings independently. Recommend continue pain medications, PT. He is feeling better. Can consider outpatient epidural injection if not improving. No surgical indication at this time. -OOB PT -Recommend Pain management consultation.
--- NOTE | 2017-11-23 13:22 | CONS ---
DATE OF CONSULTATION: DATE OF DICTATION: 11/23/2017 REQUESTING PHYSICIAN: Hayden Galindo MD CASE SPECIALIST: Yves Thomas MD, Neurosurgery CHIEF COMPLAINT: Acute, recurrent, left-sided, lower back pain and left buttock pain. HISTORY OF PRESENT ILLNESS: The patient is a 52-year-old right-handed male with history of chronic, degenerative lumbar disk disease; diverticulitis status post colectomy; left shoulder surgery; right knee meniscal surgery; who complains of 4-day history of acute onset of left-sided back pain and muscle spasm. The patient stated that 10 years ago he was treated by Dr. Zafar Muniz at [facility], when he experienced acute onset of back pain from degenerative disk disease. He subsequently underwent epidural steroid injections under the care of Dr. Angel, and he eventually improved. He has experienced intermittent lower back pain since then. Four days ago, he was reaching down to open a mailbox when he felt a twinge in his left-sided lower back. This was associated with muscle spasm, and the pain subsequently got worse. The pain radiates to the left buttocks somewhat but not down into the legs. He denies any leg weakness but initially had some bilateral leg tingling. There was no numbness. There was no bowel or bladder dysfunction. His pain was so severe he was in the emergency room initially and was discharged home on Motrin and Percocet and Flexeril, but his pain persisted, and he returned and was admitted for pain management. MRI was also done subsequently. The patient's pain is slightly improved compared to previously. He has no fever, chills, or any other signs of infection. PAST MEDICAL HISTORY: Significant for colectomy for diverticulitis, left shoulder surgery, right knee surgery, lumbar degenerative disk disease of over 10 years' duration. CURRENT MEDICATIONS: Include Tylenol, Valium, Colace, MiraLAX, senna, Toradol, morphine, Protonix. ALLERGIES: There is no known drug allergy. SOCIAL HISTORY: He smokes periodically. He drinks alcohol socially. He is in between jobs. He used to do [employer]. He lives at home in an apartment. REVIEW OF SYSTEMS: Otherwise negative for other major constitutional, head and neck, cardiovascular, pulmonary, gastrointestinal, genitourinary, endocrinological, neurological, and psychological problems except for the above. PHYSICAL EXAMINATION: Vital Signs: Temperature is 97.4. Blood pressure is 132/75. His pulse rate is 66. O2 saturation is 98% on room air. HEENT: Examination shows him to be normocephalic, atraumatic, anicteric. Neck: Supple with no significant decreased range of motion. Musculoskeletal: There is mild left shoulder tenderness, with the left shoulder incisions from his shoulder surgery. Abdomen: Healed scar from his colectomy surgery. It is benign. Extremities: Examination shows a right lateral knee scar from his right knee surgery. Distal pulses are 2+. There are no signs of DVT. Neurologic: He is awake, alert, and oriented x4. He is somewhat uncomfortable. Cranial nerve examination is intact 2-12. Motor examination shows 5/5 strength except when limited by pain on exertion. Sensory examination shows diminished sensation in the right lateral knee close to his right knee incision as well as the left L3 and nL4 distribution to pinprick and light touch. Deep tendon reflexes are hyporeflexic throughout. There is no pathologic long tract sign. Back: Left-sided paraspinal muscle spasm and mild left sciatic notch tenderness. He has a negative straight leg raise of 50 degrees bilaterally. Lumbar range of motion is decreased. LABORATORY: Examination shows white blood cell count of 9.1, hemoglobin is 14.2. BUN is 18 and creatinine 0.8. Sodium is 140. LFTs are normal. MRI of the lumbar spine demonstrated a L4 level lumbar degenerative disk disease from L2-3 to L5-S1. There is moderate left L2-3 paracentral and foraminal disk protrusion with lateral recess and foraminal impingement. There is mild left L3-4 and L4-5 paracentral disk bulge with mild thecal sac impingement. There is essential right L5-S1 paracentral disk protrusion, also with mild thecal sac impingement. Mild reversal of lumbar lordosis is noted. There is no severe central stenosis at any level. X-ray of the lumbar spine demonstrated a multi-level spondylosis with reversal of lumbar lordosis. There are osteophytes of the facets and bridging osteophytes of vertebral bodies, worse at L3-4. IMPRESSION: 1. Left L2-3 paracentral/foraminal disk protrusion with increasing lower back pain and left L3-4 radiculopathy. 2. Multi-level lumbar degenerative disk disease from L2-3 to L5-S1. 3. History of diverticulitis status post colectomy. 4. Status post recent left shoulder surgery. 5. History of right knee surgery. RECOMMENDATIONS: The patient presents with 4-day history of recurrent, left- sided, lower back pain and left buttock pain. On my examination, he has paraspinal muscle spasm but no focal neurological deficit except for mild numbness in the left L3 and L4 distribution. His MRI demonstrated left L2-3 paracentral and foraminal disk protrusion which is consistent with his current symptomatology. He also has other milder disease at L3-4 and L4-5 and has right-sided L5-S1 pathology which is not likely the cause of his current symptomatology. Of course, IV steroid is recommended which could be transitioned to a Medrol Dosepak upon discharge. He should also get a local pain management physician since he had moved down [facility] recently, and a course of epidural steroid injection could also be considered if his pain does not improve significantly. The patient is encouraged to continue with his truncal stabilization exercises which he does at home daily and possibly to undergo a course of physical therapy as well. Neurontin will be added to decrease the narcotic medication requirement. If the patient were to develop worsening neurological deficit such as worsening weakness and numbness, surgery would then be considered. He is in such acute states of pain that one should control the pain medically prior to contemplating surgical intervention. The patient concurs with the above approach. The pros and cons of treatment approaches were discussed in detail. YVES THOMAS M.D. RAND/[id number] MTDD
[2017-11-23] MEDS: SODIUM CHLORIDE 1,000 ML IV SCH (14:36)
[2017-11-23] MEDS: GABAPENTIN 300 MG CAPSULE (FP) PO SCH ×2 (14:36→21:28)
--- NOTE | 2017-11-23 19:10 | PN ---
Physical Exam: SUBJECTIVE: Patient seen and examined in AM. Continues to have back pain, but improved on pain regiment; Ambulated to bathroom and down hallway this AM; small hard BM this AM, but otherwise no BM in several day. Denies fever, chills , n/v, and CP. OBJECTIVE: Vital Signs Period Temp Pulse Resp BP Sys/Hou Pulse Ox Last 24 Hr 97.4 F-98.3 F 66-74 20-68 123-132/68-89 98-98 GENERAL: sitting in bed, nad, aaox3 HEENT: sclera anicteric, conjunctiva clear, MMM LUNGS: CTAB HEART: rrr, normal s1/s2 ABDOMEN: Soft, NTND LOWER EXTREMITIES: 2+ DP pulses, wwp, no edema MSK: No paraspinal tenderness, L paraspinal muscle spasm Neuro: Cranial nerves II-XII intact. motor strength 5/5 in all extremities, sensation intact, speech normal Active Medications Acetaminophen (Tylenol -) 650 mg PO Q4H PRN PRN Reason: PAIN LEVEL 1-5 Dexamethasone Sodium Phosphate (Decadron Injection -) 4 mg IVPUSH Q6H-IV [facility] Last Admin: 11/23/17 21:28 Dose: 4 mg Diazepam (Valium -) 5 mg PO Q8H PRN PRN Reason: WITHDRAWAL(CONT SUBST) Last Admin: 11/23/17 17:34 Dose: 5 mg Docusate Sodium (Colace -) 100 mg PO DAILY [facility] Last Admin: 11/23/17 11:13 Dose: 100 mg Gabapentin (Neurontin -) 300 mg PO TID [facility] Last Admin: 11/23/17 21:28 Dose: 300 mg Sodium Chloride (Normal Saline -) 1,000 mls @ 100 mls/hr IV ASDIR [facility] Last Admin: 11/23/17 14:36 Dose: 100 mls/hr Ketorolac Tromethamine (Toradol Injection -) 30 mg IVPUSH Q8H-IV [facility] Stop: 11/27/17 09:59 Last Admin: 11/23/17 17:34 Dose: 30 mg Morphine Sulfate (Morphine Sulfate) 4 mg IVPUSH Q4H PRN PRN Reason: PAIN LEVEL 6-10 Last Admin: 11/22/17 02:00 Dose: 4 mg Pantoprazole Sodium (Protonix -) 40 mg PO DAILY [facility] Last Admin: 11/23/17 09:11 Dose: 40 mg Polyethylene Glycol (Miralax (For Daily Use) -) 17 gm PO BID [facility] Last Admin: 11/23/17 21:30 Dose: 17 gm Senna (Senna -) 1 tab PO HS [facility] Last Admin: 11/23/17 21:30 Dose: 1 tab ASSESSMENT/PLAN: 52yo M with PMH of lumbar compression fractures, diverticulosis, perforated diverticulitis s/p colectomy who presents to ED with intractable back pain. #acute on chronic back pain, likely 2/2 to muscle spasm -MRI spine: multilevel disc degeneration L2-3 to L5-S1, small L3-L4 foraminal disc herniation -Ortho consult -Neuro consult -Decadron 4mg IV Q6H, d/c on Medrol taper -Valium 5mg PO Q8H and Toradol 30mg IV Q8H -Tylenol 650mg PO Q4H PRN -PT eval #FEN: NS@100 / monitor lyte / Regular diet #PPX TEDs #DISPO: anticipate d/c in 24h pending PT eval d/w Dr. Mateo Do MD PGY1 - Internal Medicine Visit type - Emergency Visit Emergency Visit: No - New Patient This patient is new to me today: No - Critical Care Critical Care patient: No
[2017-11-23] MEDS: SENNOSIDES 8.6MG TABLET (FP) PO SCH (21:30)
[2017-11-24] MEDS: SODIUM CHLORIDE 1,000 ML IV SCH (00:59)
[2017-11-24] MEDS: diazePAM 5 MG TABLET PO PRN ×2 (02:40→09:31)
[2017-11-24] MEDS: KETOROLAC TROMETHAMINE 30 MG/1 ML VIAL IVPUSH SCH ×2 (02:40→09:31)
[2017-11-24] MEDS: DEXAMETHASONE SOD PHOSPHATE 4 MG/1 ML VIAL IVPUSH SCH ×3 (02:40→14:07)
[2017-11-24] MEDS: GABAPENTIN 300 MG CAPSULE (FP) PO SCH ×2 (06:33→14:07)
[2017-11-24] MEDS ORDERED: PT OWN MED DRAWER 7, Y5N ONE (09:29)
[2017-11-24] MEDS: PANTOPRAZOLE 40 MG TABLET (FP) PO SCH (09:31)
[2017-11-24] MEDS: DOCUSATE SODIUM 100 MG CAPSULE (FP) PO SCH (09:31)
[2017-11-24] MEDS: POLYETHYLENE GLYCOL 3350 119 GM BTL PO SCH (09:36)
--- NOTE | 2017-11-24 09:40 | PN ---
Progress Note (short form) - Note Progress Note: NEUROSURGERY Had a large BM Pain somewhat better PE: AF, VSS General- unremarkable, L shoulder, R knee, abdominal incisions CN- intact; Motor-5/5 except pain limited; Sensation- decreased LT/PP R lateral knee and L L3-4; DTR- hyporeflexic; Back - L paraspinal muscle spasm > R, negative SLR B to 50 degrees LS spine x-rays: spondylosis, reversal of lordosis, bridging osteophytes worst L3-4 MRI LS spine- multlevel DDD L2-3 to L5-S1; L L2-3 lateral recess/foramenal disc protrusion with foramenal stenosis, small disc bulge L L3-4 and L L4-5 with mild stenosis; R L5-S1 paracentral disc protrusion IV steroid being completed for 24 hours- transition to oral medrol dose pack upon discharge Pt encouraged to get a local pain management physician for future pain management needs PT outpatient Could f/u with Dr Jackson as he had seen pt first
--- NOTE | 2017-11-24 11:33 | DS ---
Physical Exam: SUBJECTIVE: Patient seen and examined, back pain markedly improved, ambulating from the bathroom with no concerns. Had a large BM, no new leg weakness, tingling, numbness, abdominal or urinary symptoms, markedly improved. OBJECTIVE: Vital Signs Period Temp Pulse Resp BP Sys/Hou Pulse Ox Last 24 Hr 97.6 F-98.4 F 70-92 20-22 106-136/65-92 PHYSICAL EXAM General: ambulating in the hallway with no concerns Chest: CTAB, no rales or wheezing CVS:S1S2 regular Abdomen:soft, NT, ND, positive bowel sounds extremities: no edema Musculoskeletal: left lumbar spasm markedly improved, no spinal tenderness, LE power 5/5, sensation positive to light touch, SLR neg bilateral LE Neuro: AAOX3, power 5/5, sensation positive to light touch, facial symmetry, non focal exam LABS Laboratory Tests 11/21/17 11/21/17 13:45 14:00 WBC 9.1 D RBC 4.66 Hgb 14.2 D Hct 42.6 D MCV 91.3 MCH 30.4 MCHC 33.3 RDW 13.4 Plt Count 207 D MPV 7.9 Neutrophils % 62.0 D Lymphocytes % 30.4 Monocytes % 4.8 Eosinophils % 2.4 Basophils % 0.4 Sodium 140 Potassium 4.4 Chloride 104 Carbon Dioxide 25 Anion Gap 11 BUN 18 D Creatinine 0.8 Creat Clearance w eGFR > 60 Random Glucose 91 Calcium 8.9 Total Bilirubin 0.3 D AST 15 D ALT 17 D Alkaline Phosphatase 89 D Total Protein 7.2 Albumin 3.7 MRI L-spine - There is maintenance of the lumbar lordosis. Mild degenerative disc space narrowing is seen at levels L3-S1. There is minimal to mild L4-L5 degenerative retrolisthesis. Multilevel ventral and dorsal spondylosis is visualized. Mild to moderate left L5-S1 and mild left L4-L5 degenerative facet hypertrophy is noted. A moderate to large left posterolateral L2-L3 disc herniation is noted extending into the ipsilateral intervertebral foramen. This disc herniation also extends slightly into the extraforaminal zone. There is mild posterior displacement of the traversing left L3 nerve root. The disc herniation also abuts the exiting left L2 nerve root. A small left L3-L4 foraminal disc herniation is seen without definite nerve root impingement. A very small central /left paramedian L4-L5 disc herniation is noted superimposed upon mild degenerative disc bulging. A small central/right paramedian L5-S1 disc herniation is noted which abuts the traversing right S1 nerve root. There is associated minimal thecal sac indentation. Within the partially imaged lower thoracic spine at the T11-T12 level a very small central disc herniation is seen. No central canal stenosis is identified. Mild to moderate bilateral L5-S1 foraminal stenoses are seen secondary to spondylosis with degenerative disc bulging and mild facet hypertrophy. No discrete intradural abnormality is noted. The conus medullaris appears unremarkable. There is no pathologic marrow signal alteration. No vertebral body compression fracture is seen. IMPRESSION: Moderate to large left posterolateral L2-L3 disc herniation extending into the ipsilateral intervertebral foramen and slightly into the extraforaminal zone. Small left L3-L4 foraminal disc herniation. Very small central/left paramedian L4-L5 disc herniation. Small central/right paramedian L5-S1 disc herniation. Very small central T11-T12 disc herniation. Mild to moderate bilateral L5-S1 foraminal stenoses. Reported By: Albert Kuhn MD 11/22/17 0754 HOSPITAL COURSE: Date of Admission:11/21/17 Date of Discharge: 11/24/17 Minutes to complete discharge: 40 Discharge Summary Reason For Visit: INTRACTABLE BACK PAIN Current Active Problems Intractable back pain (Acute) Hospital Course: patient had MRI spine with results above. He was seen by orthopedic Dr. Jackson and advised conservative management and outpatient follow up. On patient's request, Neurosurgeon Dr. Thomas was consulted and patient was placed on decadron, gabapentin with medrol dose pack on discharge. His symptoms continued to improve and he was ambulating well prior to discharge with no neurological concerns. He is recommended outpatient physical therapy and spine and pain management follow up. Condition: Stable - Instructions Diet, Activity, Other Instructions: You were evaluated by orthopedic Dr. Jackson and neurosurgeon Dr. Thomas. You had MRI of your spine. You are recommended Medrol dose pack (take as directed on the pack) Also take oxycodone only if needed for severe pain and taper as improved. Do not drive, operate heavy machinery or take important decisions alone while on narcotics. Please ensure to take acid reflux medication (prescribed 7 days of protonix) while on steroids and if taking ibuprofen. Also advise to minimize ibuprofen use and taper as improves. Recommend bowel regimen while taking narcotics. Prescription has been provided. You are also provided with a prescription for outpatient Physical therapy and can discuss with your doctor to arrange for the same outpatient. You were also started on gabapentin, take as directed, and discuss with your doctor if dizzy, sleepy while on this medication. Again no driving, operating heavy machinery or taking important decisions alone while on this medication. Call 911 or come to ED if any worsening pain, leg weakness/tingling/numbess, urinary or bowel symptoms or new concerns. If you do not have PCP, you can follow up with Dr. Bright at the medical clinic ( information has been provided) Please return to the emergency department with any new or worsening symptoms or concerns. Please follow up with your primary care physician within 72 hours. Referrals: Sean Bright MD [Staff Physician] - Yves Thomas MD [Staff Physician] - Chauncey Jackson MD [Staff Physician] - Disposition: HOME - Home Medications Comprehensive Discharge Medication List: Ambulatory Orders Acetaminophen [Tylenol .Regular Strength -] 650 mg PO Q4H PRN tablet 11/24/17 Docusate Sodium [Colace -] 100 mg PO BID 10 Days #60 capsule 11/24/17 Gabapentin [Neurontin -] 300 mg PO TID #30 capsule 11/24/17 Ibuprofen 800 mg PO TID PRN #30 tablet 11/24/17 Methylprednisolone [Medrol Dose Willi] 4 mg PO ASDIR #21 tablet 11/24/17 Miscellaneous Medical Supply [Outpatient Order] 1 each ASDIR #1 misc Oxycodone HCl 5 mg PO Q8H PRN #10 capsule MDD 15 11/24/17 Pantoprazole Sodium [Protonix -] 40 mg PO DAILY #7 tablet.ec 11/24/17 Polyethylene Glycol 3350 [Miralax (For Daily Use) -] 17 gm PO DAILY PRN #1 bottle 11/24/17 Sennosides [Senna -] 1 tab PO HS #15 tablet 11/24/17 This patient is new to me today: No Emergency Visit: No Critical Care patient: No - Discharge Referral Referred to [facility] Med [facility] No
[2017-11-24 14:30] VITALS: BP 155/66; PULSE 86; TEMP 98.2
== END 2017-11-24 15:37 | disposition home or self-care (01) ==
LOC: JER 10:25 → JERBED 13:52 → J6S 16:36
PROVIDERS: ADMIT Internal Medicine; ATTEND Hospitalist
PROC: 3E0333Z Introduction of Anti-inflammatory into Peripheral Vein, Percutaneous Approach (ICD-10-PCS; principal; 2017-11-21)
PROC: 3E033NZ Introduction of Analgesics, Hypnotics, Sedatives into Peripheral Vein, Percutaneous Approach (ICD-10-PCS; 2017-11-21)
PROC: 3E033GC Introduction of Other Therapeutic Substance into Peripheral Vein, Percutaneous Approach (ICD-10-PCS; 2017-11-21)
PROC: 3E0337Z Introduction of Electrolytic and Water Balance Substance into Peripheral Vein, Percutaneous Approach (ICD-10-PCS; 2017-11-21)
DX: M54.9 Dorsalgia, unspecified (principal); M54.5 Low back pain; R26.2 Difficulty in walking, not elsewhere classified; G89.29 Other chronic pain; M51.16 Intervertebral disc disorders with radiculopathy, lumbar region; M51.37 Other intervertebral disc degeneration, lumbosacral region
CPT/HCPCS: 36415; 72148-TC; 80053; 85025; 93005; 93010; 97116-GP; 97161-GP; 99284-25; G0378; J0131; J7030

== ENCOUNTER 2021-02-28 07:48 | Emergency (ER) | payer OTHER ==
[2021-02-28 07:55] VITALS: BP 154/92; PULSE 103; TEMP 99; BMI 29.0
[2021-02-28] MEDS ORDERED: LACTATED RINGERS SOLUTION 1000 ML INFUS.BAG IV ONE (08:01)
[2021-02-28] MEDS ORDERED: ACETAMINOPHEN 1000 MG/100 ML VIAL (NON FORMULARY) IVPB ONE (08:01)
[2021-02-28] MEDS ORDERED: ACETAMINOPHEN INJECTION 100 ML IVPB ONE (08:11)
[2021-02-28 08:36] LABS: HEMOGLOBIN 14.9 GM/dl (11.7-16.9); MCHC 33.7 g/dl (32.0-35.9); MEAN CELL VOLUME 92.1 fl (80-96); MEAN PLT VOLUME 7.9 fl (7.5-11.1); PLATELET COUNT 234 10^3/uL (134-434); RBC 4.78 M/mm3 (4.00-5.60); RDW 12.9 % (11.9-15.9); WHITE BLOOD COUNT 12.9 K/mm3 (4.0-10.8)
[2021-02-28 08:55] LABS: ALBUMIN 4.1 g/dl (3.4-5.0); BILIRUBIN,TOTAL 0.7 mg/dl (0.2-1); CREATININE 0.9 mg/dl (0.55-1.3)
[2021-02-28 09:23] LABS: PLATELET ESTIMATE ADEQUATE
[2021-02-28] MEDS ORDERED: SIMETHICONE 80 MG TAB.CHEW (FP) PO ONE (11:21)
[2021-02-28] MEDS ORDERED: metroNIDAZOLE 250 MG TABLET PO ONE (11:21)
[2021-02-28] MEDS ORDERED: metroNIDAZOLE 250 MG TABLET ONE (11:28)
[2021-02-28] MEDS ORDERED: SIMETHICONE 80 MG TAB.CHEW (FP) ONE (11:29)
== END 2021-02-28 11:33 | disposition home or self-care (01) ==
LOC: FER 07:48
PROC: 3E0333Z Introduction of Anti-inflammatory into Peripheral Vein, Percutaneous Approach (ICD-10-PCS; principal; 2021-02-28)
DX: K57.92 Diverticulitis of intestine, part unspecified, without perforation or abscess without bleeding (principal)
CPT/HCPCS: 36415; 74177-TC; 80053; 81003; 83605; 83690; 85025; 99285-25; J0131; Q9967

== ENCOUNTER 2021-05-11 09:50 | Emergency (ER) | payer OTHER ==
[2021-05-11 10:21] VITALS: BP 128/77; PULSE 68; TEMP 98; BMI 28.0
[2021-05-11 10:58] LABS: BASO % 2.3 % (0-2.0); EOS % 1.2 % (0-4.5); HEMATOCRIT 44.2 % (35.4-49); HEMOGLOBIN 14.9 GM/dl (11.7-16.9); LYMPH % 22.7 % (8-40); MCH 30.7 pg (25.7-33.7); MCHC 33.7 g/dl (32.0-35.9); MEAN CELL VOLUME 91.1 fl (80-96); MEAN PLT VOLUME 7.6 fl (7.5-11.1); MONO % 5.8 % (3.8-10.2); PLATELET COUNT 255 10^3/uL (134-434); RBC 4.85 M/mm3 (4.00-5.60); RDW 12.8 % (11.9-15.9); WHITE BLOOD COUNT 9.6 K/mm3 (4.0-10.8)
[2021-05-11 11:05] LABS: ALBUMIN 4.1 g/dl (3.4-5.0); BILIRUBIN,TOTAL 0.7 mg/dl (0.2-1); CREATININE 0.9 mg/dl (0.55-1.3); TOT PROT 7.3 g/dl (6.4-8.2)
[2021-05-11] MEDS ORDERED: diazePAM 5 MG TABLET PO ONE (11:19)
[2021-05-11] MEDS ORDERED: ACETAMINOPHEN 325 MG TABLET (FP) PO ONE (11:20)
[2021-05-11] MEDS ORDERED: ACETAMINOPHEN 500 MG TABLET (FP) ONE (11:22)
[2021-05-11] MEDS ORDERED: diazePAM 5 MG TABLET ONE (11:23)
[2021-05-11] MEDS ORDERED: KETOROLAC TROMETHAMINE 15 MG/ML VIAL IVPUSH ONE (12:48)
[2021-05-11] MEDS ORDERED: KETOROLAC TROMETHAMINE 15 MG/ML VIAL ONE (12:49)
== END 2021-05-11 13:01 | disposition home or self-care (01) ==
LOC: FER 09:50
PROC: 3E033GC Introduction of Other Therapeutic Substance into Peripheral Vein, Percutaneous Approach (ICD-10-PCS; principal; 2021-05-11)
DX: M54.2 Cervicalgia (principal)
CPT/HCPCS: 36415; 70450-TC; 70496-TC; 70498-TC; 72125-TC; 80053; 85025; 99285-25; Q9967

== ENCOUNTER 2024-03-14 22:28 | Emergency (ER) | payer BC ==
[2024-03-14 22:37] VITALS: BMI 27.6
[2024-03-14 23:21] LABS: HEMATOCRIT 43.3 % (35.4-49); HEMOGLOBIN 14.3 G/dL (11.7-16.9); MCH 30.5 pg (25.7-33.7); MEAN CELL VOLUME 92.3 fl (80-96); MEAN PLT VOLUME 7.6 fl (7.5-11.1); PLATELET COUNT 147.6 10^3/uL (134-434); RBC 4.69 10^6/uL (4.00-5.60); RDW 13.5 % (11.9-15.9)
[2024-03-14 23:28] LABS: PLATELET ESTIMATE ADEQUATE
[2024-03-14 23:31] LABS: ALBUMIN 4.2 g/dl (3.4-5.0); BILIRUBIN,TOTAL 0.5 mg/dl (0.2-1); CALCIUM 8.8 mg/dl (8.5-10.1); CREATININE 0.9 mg/dl (0.6-1.3); TOT PROT 6.1 g/dl (6.4-8.2)
[2024-03-14] MEDS: SODIUM CHLORIDE 1,000 ML IV STA (23:49)
[2024-03-15] MEDS ORDERED: DOCUSATE SODIUM 100 MG CAPSULE (FP) PO PRN (00:47)
[2024-03-15] MEDS ORDERED: ACETAMINOPHEN 325 MG TABLET (FP) PO PRN (00:47)
[2024-03-16 08:19] LABS: HEMATOCRIT 42.6 % (35.4-49); HEMOGLOBIN 13.7 G/dL (11.7-16.9); MCH 29.5 pg (25.7-33.7); MCHC 32.2 g/dl (32.0-35.9); MEAN CELL VOLUME 91.7 fl (80-96); MEAN PLT VOLUME 7.8 fl (7.5-11.1); PLATELET COUNT 175.1 10^3/uL (134-434); RBC 4.65 10^6/uL (4.00-5.60); RDW 14.4 % (11.9-15.9); WHITE BLOOD COUNT 6.7 10^3/uL (4.0-10.8)
[2024-03-16 08:53] VITALS: RESP 18
[2024-03-16 09:13] LABS: CALCIUM 9.3 mg/dl (8.5-10.1); CREATININE 0.8 mg/dl (0.6-1.3); POTASSIUM 4.7 mmol/L (3.5-5.1)
[2024-03-16 10:03] LABS: N-TERMINAL BNP 129.5 pg/ml (5-125)
[2024-03-16 14:15] VITALS: BP 129/71; PULSE 60; TEMP 97.7
[2024-03-16] MEDS: ACETAMINOPHEN 500 MG TABLET (FP) PO ONE (14:24)
== END 2024-03-16 15:02 | disposition home or self-care (01) ==
LOC: FER 22:28 → FM/S 03-15 01:31
PROVIDERS: ADMIT Internal Medicine
PROC: 3E0337Z Introduction of Electrolytic and Water Balance Substance into Peripheral Vein, Percutaneous Approach (ICD-10-PCS; principal; 2024-03-14)
DX: S00.03XA Contusion of scalp, initial encounter (principal); R55 Syncope and collapse; R42 Dizziness and giddiness; W01.198A Fall on same level from slipping, tripping and stumbling with subsequent striking against other object, initial encounter
CPT/HCPCS: 36415; 70450-TC; 71045-TC-FY; 72125-TC; 78452-TC; 80048; 80053; 80061; 83036; 83880; 84439; 84443; 84484; 85027; 93005; 93017; 93306-TC; 96360; 99285-25; A9502; G0378

== ENCOUNTER 2024-05-04 07:24 | Emergency (ER) | payer BC ==
[2024-05-04 07:33] VITALS: BP 140/79; PULSE 80; RESP 17; TEMP 97.3; BMI 26.0
[2024-05-04] MEDS ORDERED: ACETAMINOPHEN INJECTION 100 ML ONE (07:53)
[2024-05-04] MEDS ORDERED: FAMOTIDINE 20 MG/50 ML IVPB 20 MG/50 ML MG IVPB ONE (07:53)
[2024-05-04] MEDS: FAMOTIDINE 20 MG/50 ML IVPB 20 MG/50 ML MG IVPB ONE (07:56)
[2024-05-04] MEDS: ACETAMINOPHEN 1000 MG/100 ML BAG IVPB ONE (07:56)
[2024-05-04 08:13] LABS: HEMATOCRIT 45.7 % (35.4-49); HEMOGLOBIN 14.9 G/dL (11.7-16.9); MCH 29.6 pg (25.7-33.7); MCHC 32.5 g/dl (32.0-35.9); MEAN CELL VOLUME 90.8 fl (80-96); MEAN PLT VOLUME 7.6 fl (7.5-11.1); PLATELET COUNT 217.3 10^3/uL (134-434); RBC 5.03 10^6/uL (4.00-5.60); WHITE BLOOD COUNT 11.1 10^3/uL (4.0-10.8)
[2024-05-04 08:14] LABS: INR 1.01 (0.83-1.09); PROTHROMBIN TIME (PATIENT) 11.5 SEC (9.7-13.0)
[2024-05-04] MEDS: SODIUM CHLORIDE 1,000 ML IV STA (08:21)
[2024-05-04 08:39] LABS: ALBUMIN 4.5 g/dl (3.4-5.0); ALK PHOS 104 U/L (45-117); ANION GAP 7 mmol/L (4-13); CALCIUM 9.5 mg/dl (8.5-10.1); CHLORIDE 104 mmol/L (98-107); CO2 26 mmol/L (21-32); CREATININE 0.9 mg/dl (0.6-1.3); GLUCOSE,RANDOM 102 mg/dl (74-106); POTASSIUM 4.3 mmol/L (3.5-5.1); SGOT/AST 14 U/L (15-37); SGPT/ALT 16 U/L (7-52); SODIUM 137 mmol/L (136-145); TOT PROT 6.9 g/dl (6.4-8.2)
[2024-05-04 09:31] LABS: PLATELET ESTIMATE ADEQUATE
[2024-05-04] MEDS ORDERED: AMOX TR/POT CLAV 875MG/125MG TABLETS (FP) ONE (12:14)
[2024-05-04] MEDS: AMOX TR/POT CLAV 875MG/125MG TABLETS (FP) PO ONE (12:18)
== END 2024-05-04 12:32 | disposition home or self-care (01) ==
LOC: FER 07:24
PROC: 3E033GC Introduction of Other Therapeutic Substance into Peripheral Vein, Percutaneous Approach (ICD-10-PCS; principal; 2024-05-04)
PROC: 3E033NZ Introduction of Analgesics, Hypnotics, Sedatives into Peripheral Vein, Percutaneous Approach (ICD-10-PCS; 2024-05-04)
PROC: 3E0337Z Introduction of Electrolytic and Water Balance Substance into Peripheral Vein, Percutaneous Approach (ICD-10-PCS; 2024-05-04)
DX: K57.92 Diverticulitis of intestine, part unspecified, without perforation or abscess without bleeding (principal); R19.7 Diarrhea, unspecified; R10.9 Unspecified abdominal pain
CPT/HCPCS: 36415; 71045-TC-FY; 74177-TC; 80053; 81003; 83690; 84484; 85025; 85610; 85730; 86850; 86900; 86901; 87086; 93005; 99285-25; J0131; Q9967

== ENCOUNTER 2024-10-23 07:23 | Emergency (ER) | payer BC ==
[2024-10-23 07:33] VITALS: BP 121/78; PULSE 83; RESP 18; TEMP 98.6; BMI 27.9
[2024-10-23] MEDS ORDERED: FAMOTIDINE 20 MG/50 ML IVPB 20 MG/50 ML MG IVPB ONE (08:39)
[2024-10-23] MEDS ORDERED: ACETAMINOPHEN INJECTION 100 ML ONE (08:39)
[2024-10-23] MEDS ORDERED: ONDANSETRON 4 MG/2 ML VIAL ONE (08:39)
[2024-10-23] MEDS: ONDANSETRON 4 MG/2 ML VIAL IVPUSH ONE (09:10)
[2024-10-23] MEDS: SODIUM CHLORIDE 0.9% 500 ML INFUS.BAG IV ONE (09:10)
[2024-10-23] MEDS: FAMOTIDINE 20 MG/50 ML IVPB 20 MG/50 ML MG IVPB ONE (09:10)
[2024-10-23] MEDS: ACETAMINOPHEN 1000 MG/100 ML BAG IVPB ONE (09:10)
[2024-10-23 09:16] LABS: BASO % 0.1 % (0-2.0); EOS % 0.7 % (0-4.5); HEMATOCRIT 41.9 % (35.4-49); HEMOGLOBIN 14.5 GM/dL (11.7-16.9); LYMPH % 5.5 % (8-40); MCH 30.7 pg (25.7-33.7); MCHC 34.6 g/dl (32.0-35.9); MEAN CELL VOLUME 88.6 fl (80-96); MEAN PLT VOLUME 7.3 fl (7.5-11.1); MONO % 9.2 % (3.8-10.2); NEUT % 84.5 % (42.8-82.8); PLATELET COUNT 178 10^3/uL (134-434); RBC 4.72 M/mm3 (4.00-5.60); RDW 13.3 % (11.9-15.9); WHITE BLOOD COUNT 6.7 K/mm3 (4.0-10.0)
[2024-10-23 09:44] LABS: POTASSIUM 3.9 mmol/L (3.5-5.1)
[2024-10-23 09:46] LABS: CALCIUM 8.9 mg/dL (8.5-10.1)
[2024-10-23 09:47] LABS: ALBUMIN 4.2 g/dl (3.4-5.0)
[2024-10-23] MEDS ORDERED: KETOROLAC TROMETHAMINE 15 MG/ML VIAL ONE (09:49)
[2024-10-23] MEDS ORDERED: LIDOCAINE 5% TOPICAL PATCH ONE (09:49)
[2024-10-23 09:50] LABS: CREATININE 0.8 mg/dL (0.55-1.3)
[2024-10-23 09:51] LABS: BILIRUBIN,TOTAL 0.6 mg/dL (0.2-1)
[2024-10-23 09:53] LABS: TOT PROT 6.7 g/dl (6.4-8.2)
[2024-10-23] MEDS: KETOROLAC TROMETHAMINE 30 MG/1 ML VIAL IVPUSH ONE (09:56)
[2024-10-23] MEDS: LIDOCAINE 5% TOPICAL PATCH TP ONE (09:56)
[2024-10-23] MEDS ORDERED: LIDOCAINE PATCH REMOVAL MC SCH (22:00)
== END 2024-10-23 10:52 | disposition home or self-care (01) ==
LOC: JER 07:23
PROC: 3E033GC Introduction of Other Therapeutic Substance into Peripheral Vein, Percutaneous Approach (ICD-10-PCS; principal; 2024-10-23)
PROC: 3E033NZ Introduction of Analgesics, Hypnotics, Sedatives into Peripheral Vein, Percutaneous Approach (ICD-10-PCS; 2024-10-23)
PROC: 3E0333Z Introduction of Anti-inflammatory into Peripheral Vein, Percutaneous Approach (ICD-10-PCS; 2024-10-23)
PROC: 3E033GC Introduction of Other Therapeutic Substance into Peripheral Vein, Percutaneous Approach (ICD-10-PCS; 2024-10-23)
DX: A08.4 Viral intestinal infection, unspecified (principal); M54.50 Low back pain, unspecified; R19.7 Diarrhea, unspecified; M79.10 Myalgia, unspecified site; R68.83 Chills (without fever)
CPT/HCPCS: 36415; 80053; 85025; 99284-25; J0131